=== PATIENT | female | born 1985 | race Caucasian/White ===

== ENCOUNTER → 2020-05-29 08:29 | Outpatient (BNVA) | payer OTHER, SELFPAY | PROVIDERS: PCP Internal Medicine; Visit Provider Obstetrics & Gynecology | DX: N92.1 Excessive and frequent menstruation with irregular cycle (principal); R10.2 Pelvic and perineal pain; R31.29 Other microscopic hematuria; Z86.001 Personal history of in-situ neoplasm of cervix uteri | CPT/HCPCS: 81003; 99213 ==

== ENCOUNTER 2020-06-12 08:05 | Outpatient (REF) | payer OTHER, SELFPAY ==
--- NOTE | 2020-06-12 08:09 | CT_ITS ---
EXAMINATION: CT ABDOMEN AND PELVIS WITHOUT AND WITH CONTRAST CLINICAL INFORMATION: Microscopic hematuria. COMPARISON: Ultrasound abdomen 07/06/[address] abdomen and pelvis with contrast 04/20/2013 TECHNIQUE: Multidetector volumetric imaging was performed of the abdomen and pelvis before and after the IV administration of 85 mL of Omnipaque 350 intravenous contrast. Sagittal and coronal reformatted images were obtained on the technologist's workstation. This CT examination was performed using dose optimization techniques as appropriate, variously including the following: *Automated exposure control *Adjustment of mA and/or kV according to patient size (this includes techniques or standardized protocols for targeted exams where dose is matched to indication/reason for exam; i.e. extremities or head) *Use of iterative reconstruction technique DLP: 806 mGy-cm FINDINGS: LUNG BASES: The lung bases are clear. The heart size is normal. LIVER, GALLBLADDER, AND BILIARY TREE: The liver is normal in size, shape, and attenuation. There is 1 cm hypodense lesion right hepatic lobe measuring cyst density. There are several scattered hypodense lesions seen as well in the right and the left hepatic lobe likely small cysts. No intrahepatic ductal dilatation seen. No enhancing lesion identified. The gallbladder is unremarkable with no evidence of radiopaque gallstones, gallbladder wall thickening or obvious pericholecystic inflammatory changes. PANCREAS: Unremarkable. SPLEEN: Unremarkable. ADRENAL GLANDS: Unremarkable. KIDNEYS AND URETERS: The kidneys are normal in size, shape and attenuation. No radiopaque renal or ureteral calculi seen. Postcontrast images reveal normal cortical enhancement with likely small hypodense cyst in the upper pole left kidney. There is a mildly dilated right ureter in its entire length with slight hypodense appearing distal ureter with ureteral wall thickening. No radiopaque calculi seen. BLADDER: Unremarkable. GASTROINTESTINAL TRACT: There is scattered stool and gas seen throughout the colon without any significant distention. The small bowel loops are normal in caliber. The appendix has been surgically removed with surgical sutures in its place. No free fluid or free air seen. ABDOMINAL WALL: No significant hernia is appreciated. LYMPH NODES: Normal. VASCULAR: Unremarkable. PELVIC VISCERA: There are small septated cysts seen in both ovaries. There is minimal free fluid. The uterus is anteverted and appears unremarkable. OSSEOUS STRUCTURES: Mild degenerative disc changes and ventral spondylosis seen lower dorsal spine. The lumbar spine is grossly unremarkable. IMPRESSION: No radiopaque urolith or hydronephrosis. There is a mildly dilated right distal ureter with mild right ureteral wall thickening suspected. Appendix has been surgically removed. Mild constipation. Bilateral multiple renal cysts.
[2020-06-12] MEDS: iohexoL 350 MG/ML 100 ML INFUS..BTL IV (09:20)
== END 2020-06-12 08:06 | disposition home or self-care (01) ==
LOC: HO.CT 08:05
PROVIDERS: PCP Internal Medicine; Visit Provider Obstetrics & Gynecology
DX: R31.29 Other microscopic hematuria (principal)
CPT/HCPCS: 74178

== ENCOUNTER 2020-08-11 10:19 | Outpatient (REF) | payer OTHER, SELFPAY | END 2020-08-11 10:20 | disposition home or self-care (01) | LOC: HO.LAB 10:19 | PROVIDERS: Visit Provider Obstetrics & Gynecology | DX: N92.1 Excessive and frequent menstruation with irregular cycle (principal) | CPT/HCPCS: 58100; 81025; 88305 ==

== ENCOUNTER → 2020-08-31 15:11 | Outpatient (BNVA) | payer OTHER, SELFPAY | PROVIDERS: PCP Nurse Practitioner Family; Visit Provider Obstetrics & Gynecology | DX: Z76.89 Persons encountering health services in other specified circumstances (principal) ==

== ENCOUNTER → 2021-01-09 13:33 | Outpatient (BNVA) | payer OTHER, SELFPAY | PROVIDERS: PCP Internal Medicine; Visit Provider Urology | DX: R31.29 Other microscopic hematuria (principal) | CPT/HCPCS: 99202 ==

== ENCOUNTER 2021-02-01 16:19 | Emergency (ER) | payer OTHER, SELFPAY ==
--- NOTE | ~2021-02-01 | US_ITS ---
EXAMINATION: ULTRASOUND PELVIS CLINICAL INFORMATION: Worsening suprapubic and left lower quadrant pain COMPARISON: 05/17/2020 TECHNIQUE: Sonographic evaluation of the pelvis was performed transabdominally and transvaginally. FINDINGS: The uterus measures 5.8 cm in length and 3.6 x 4.7 cm in AP and transverse dimensions. The endometrial stripe measures 1.0 cm in thickness. Redemonstrated echogenic foci in the cervix and endometrium which may reflect sequelae of prior biopsies. The right ovary measures 2.1 x 2.1 x 1.9 cm (volume 4.4 mL). Right ovarian cyst measures up to 1.8 cm. Tiny echogenic focus noted in the right ovary. The left ovary measures 2.8 x 1.7 x 2.1 cm (volume 5.2 mL) and contains a somewhat thick-walled cyst measuring up to 1.6 cm favored to represent a corpus luteal cyst. No free fluid is seen. US/US pelvic and transvaginal IMPRESSION: No acute findings identified in the abdomen/pelvis. Small echogenic foci in the endometrium and cervix, likely sequelae of prior biopsies.
[2021-02-01 17:27] VITALS: BP 113/54; PULSE 92; RESP 18; TEMP 36.6; O2SAT 98; BMI 26.5
[2021-02-01 17:48] LABS: Glucose Urine UA NEG (NEG); Leukocyte Esterase Urine NEG (NEG); Nitrite Urine NEG (NEG); Urine Blood NEG (NEG); Urine Ketones NEG (NEG); Urine Protein NEG (NEG-TRACE)
[2021-02-01 17:50] LABS: Appearance Urine CLEAR; Color Urine STRAW
[2021-02-01 17:51] LABS: UPreg QC Valid YES; Urine Pregnancy NEGATIVE (NEGATIVE)
[2021-02-01 20:17] VITALS: BP 98/68; PULSE 75; RESP 18; O2SAT 99
[2021-02-01 20:28] LABS: MANUAL DIFF FLAG NO
[2021-02-01 20:31] LABS: Basophils Percent Auto 0.4 % (0-2); Eosinophils Absolute Auto 0.2 X10*3/uL (0.0-0.4); Eosinophils Percent Auto 2.2 % (0-4); Hematocrit 39.3 % (37-47); Hemoglobin 13.2 g/dl (12.0-16.0); Imm Gran Abs Auto 0.04 X10*3/uL (0.00-0.03); Imm Gran Pct Auto 0.4 % (0.0-0.4); Lymphocytes Absolute Auto 3.7 X10*3/uL (1.2-4.9); Lymphocytes Percent Auto 37.8 % (20-40); Mean Corpuscular HGB Conc 33.6 g/dl (31.0-35.0); Mean Corpuscular Hemoglobin 30.9 pg (27.0-33.0); Mean Platelet Volume 9.6 fL (9.4-12.3); Monocytes Absolute Auto 0.6 X10*3/uL (0.1-1.2); Monocytes Percent Auto 6.5 % (2-11); Neutrophils Absolute Auto 5.1 X10*3/uL (2.0-8.3); Neutrophils Percent Auto 52.7 % (45-73); Platelet Count 330 X10*3/uL (160-400); Red Blood Count 4.27 X10*6/uL (4.20-5.50); Red Cell Distribution Width 13.6 % (11.0-16.0); White Blood Count 9.7 X10*3/uL (4.8-10.8)
[2021-02-01 20:59] LABS: Anion Gap 10 (12-20); Calcium 9.3 mg/dL (8.4-10.2); Carbon Dioxide 28 mmol/L (22-29); Chloride 102 mmol/L (96-108); Creatinine Clr Calc Pharmacy 102.9; Estimated Glomerular Filt Rate > 60; Glucose Random 86 mg/dL (60-115); Sodium 136 mmol/L (135-145)
[2021-02-01 21:04] LABS: Blood Urea Nitrogen 10 mg/dL (9-16)
[2021-02-01 23:22] VITALS: BP 114/58; PULSE 70; RESP 18; TEMP 36.8; O2SAT 98
--- NOTE | 2021-02-01 23:33 | ED.ABDPAIN ---
HPI - Abdominal Pain General Chief Complaint: Abdominal Pain Stated Complaint: Lower Rib Pain Time Seen by Provider: 02/01/21 23:26 Source: patient Mode of arrival: ambulatory Limitations: no limitations History of Present Illness HPI narrative: Patient emergency room complaining of worsening suprapubic pain. Patient states she has been seen by Dr. Garvin from Urology, Dr. Montano from OBGYN. Patient has been diagnosed with microscopic hematuria and also endometriosis. Patient states that for the last 2 weeks she has been having worsening suprapubic pain. Patient states the pain became worse today and called obgyn specialist, she was instructed to come to emergency room. MD elicited complaint: abdominal pain Related Data Previous Rx's Medication Instructions Recorded amoxicillin 875 mg-potassium 1 tab PO BID #20 tab 12/29/20 clavulanate 125 mg tablet dexamethasone 4 mg tablet 4 mg PO .COMPLEX #18 tab 12/29/20 tramadol 50 mg PO TID PRN #10 tab 02/02/21 Allergies Allergy/AdvReac Type Severity Reaction Status Date / Time No Known Allergies Allergy Verified 01/09/21 08:06 Review of Systems Review of Systems Constitutional : No Weight loss, No Fever, No Chills, No Night Sweats, No Fatigue, No Malaise ENT/Mouth : No Hearing loss, No Ear Pain, No Nasal Congestion, No Sinus Pain, No Hoarseness, No sore throat, No Rhinorrhea, No Swallowing Difficulty Eyes: No Eye Pain, No Swelling, No Redness, No Foreign Body, No Discharge, No Vision Changes Cardiovascular : No Chest Pain, No SOB, No Dyspnea on Exertion, No Orthopnea, No Edema, No Palpitations Respiratory : No Cough, No Sputum, No Wheezing, No Smoke Exposure, No Dyspnea Gastrointestinal : No Nausea, No Vomiting, No Diarrhea, No Constipation, complaining of suprapubic pain, left lower quadrant pain, No Hematochezia, No Melena Genitourinary : no irregular bleeding, No Dysuria, No Urinary Frequency, No Hematuria, No Urinary Incontinence, No Urgency, No Flank Pain, No Urinary Flow Changes, No Hesitancy Musculoskeletal : No joint pain, No Myalgias, No Joint Swelling Skin : No Skin Lesions, No rash Neuro : No Weakness, No Numbness, No Paresthesias, No Loss of Consciousness, No Dizziness, No Headache Psych : No Anxiety/Panic, No Depression, No SI/HI/AH/VH, No Social Issues, Heme/Lymph: No Bruising, No Bleeding,No Lymphadenopathy Endocrine : No Polyuria, No Polydipsia, No Temperature Intolerance Physical Exam Vital Signs: Vital Signs: Last Vital Signs Temp 98.3 F 02/01/21 23:22 Pulse 70 02/01/21 23:22 Resp 18 02/01/21 23:22 BP 114/58 L 02/01/21 23:22 Pulse Ox 98 02/01/21 23:22 Body Mass Index 26.5 Appearance: Alert. Oriented X3. No acute distress. Eyes: Pupils equal, round and reactive to light. ENT: Pharynx normal. Neck: Normal inspection. Neck supple. No lymph nodes noted. No crepitus CVS: Normal heart rate and rhythm. Pulses normal. Normal S1 and S2 Respiratory: No respiratory distress. Breath sounds normal. No Wheezing. No rales Abdomen: Soft, [id number] pain to palpation over the suprapubic region and left lower quadrant. No rigidity. No distention. Skin: Skin warm and dry. Normal skin color. Normal skin turgor. Extremities: No lower extremity edema. No lower extremity edema. No Lacerations. No Rash Neuro: Oriented X 3. No motor deficit. No sensory deficit. Moving all extermities. No slurred speech. Course Course Course Narrative: I discussed the ultrasound with the patient, patient does have a right ovarian cyst, patient has chronic pain likely secondary from endometriosis. Patient instructed to follow-up with her OBGYN. MDM - Abdominal Pain Lab Data Result diagrams: 02/01/21 20:23 02/01/21 20:23 Labs: Lab Results 02/01/21 02/01/21 02/01/21 Range/Units 17:33 17:33 20:23 WBC 9.7 (4.8-10.8) X10*3/uL RBC 4.27 (4.20-5.50) X10*6/uL Hgb 13.2 (12.0-16.0) g/dl Hct 39.3 (37-47) % MCV 92.0 (80-98) fL MCH 30.9 (27.0-33.0) pg MCHC 33.6 (31.0-35.0) g/dl RDW 13.6 (11.0-16.0) % Plt Count 330 (160-400) X10*3/uL MPV 9.6 (9.4-12.3) fL Immature Gran % (Auto) 0.4 (0.0-0.4) % Neut % (Auto) 52.7 (45-73) % Lymph % (Auto) 37.8 (20-40) % [place] % (Auto) 6.5 (2-11) % Eos % (Auto) 2.2 (0-4) % Baso % (Auto) 0.4 (0-2) % Lymph # (Auto) 3.7 (1.2-4.9) X10*3/uL [place] # (Auto) 0.6 (0.1-1.2) X10*3/uL Eos # (Auto) 0.2 (0.0-0.4) X10*3/uL Baso # (Auto) 0.0 (0.0-0.2) X10*3/uL Abs Immat Gran (auto) 0.04 H (0.00-0.03) X10*3/uL Absolute Neuts (auto) 5.1 (2.0-8.3) X10*3/uL Absolute Nucleated RBC 0.000 (0.0-0.012) X10*3/uL Nucleated RBC % (auto) 0.0 (0.0-0.2) /100WBC Sodium (135-145) mmol/L Potassium (3.3-5.1) mmol/L Chloride (96-108) mmol/L Carbon Dioxide (22-29) mmol/L Anion Gap (12-20) BUN (9-16) mg/dL Creatinine (0.5-1.4) mg/dL Estim Creat Clear Calc Estimated GFR Random Glucose (60-115) mg/dL Calcium (8.4-10.2) mg/dL Urine Color STRAW Urine Appearance CLEAR Urine pH 7.0 (5.0-8.0) Ur Specific Mcdonough 1.010 (1.005-1.025) Urine Protein NEG (NEG-TRACE) MG/DL Urine Glucose (UA) NEG (NEG) MG/DL Urine Ketones NEG (NEG) MG/DL Urine Blood NEG (NEG) Urine Nitrite NEG (NEG) Ur Leukocyte Esterase NEG (NEG) Urine Test NEGATIVE (NEGATIVE) 02/01/21 Range/Units 20:23 WBC (4.8-10.8) X10*3/uL RBC (4.20-5.50) X10*6/uL Hgb (12.0-16.0) g/dl Hct (37-47) % MCV (80-98) fL MCH (27.0-33.0) pg MCHC (31.0-35.0) g/dl RDW (11.0-16.0) % Plt Count (160-400) X10*3/uL MPV (9.4-12.3) fL Immature Gran % (Auto) (0.0-0.4) % Neut % (Auto) (45-73) % Lymph % (Auto) (20-40) % [place] % (Auto) (2-11) % Eos % (Auto) (0-4) % Baso % (Auto) (0-2) % Lymph # (Auto) (1.2-4.9) X10*3/uL [place] # (Auto) (0.1-1.2) X10*3/uL Eos # (Auto) (0.0-0.4) X10*3/uL Baso # (Auto) (0.0-0.2) X10*3/uL Abs Immat Gran (auto) (0.00-0.03) X10*3/uL Absolute Neuts (auto) (2.0-8.3) X10*3/uL Absolute Nucleated RBC (0.0-0.012) X10*3/uL Nucleated RBC % (auto) (0.0-0.2) /100WBC Sodium 136 (135-145) mmol/L Potassium 4.0 (3.3-5.1) mmol/L Chloride 102 (96-108) mmol/L Carbon Dioxide 28 (22-29) mmol/L Anion Gap 10 L (12-20) BUN 10 (9-16) mg/dL Creatinine 0.70 (0.5-1.4) mg/dL Estim Creat Clear Calc 102.9 Estimated GFR > 60 Random Glucose 86 (60-115) mg/dL Calcium 9.3 (8.4-10.2) mg/dL Urine Color Urine Appearance Urine pH (5.0-8.0) Ur Specific Mcdonough (1.005-1.025) Urine Protein (NEG-TRACE) MG/DL Urine Glucose (UA) (NEG) MG/DL Urine Ketones (NEG) MG/DL Urine Blood (NEG) Urine Nitrite (NEG) Ur Leukocyte Esterase (NEG) Urine Test (NEGATIVE) Imaging Data US - abdomen: Radiologist's impression: FINDINGS: The uterus measures 5.8 cm in length and 3.6 x 4.7 cm in AP and transverse dimensions. The endometrial stripe measures 1.0 cm in thickness. Redemonstrated echogenic foci in the cervix and endometrium which may reflect sequelae of prior biopsies. The right ovary measures 2.1 x 2.1 x 1.9 cm (volume 4.4 mL). Right ovarian cyst measures up to 1.8 cm. Tiny echogenic focus noted in the right ovary. The left ovary measures 2.8 x 1.7 x 2.1 cm (volume 5.2 mL) and contains a somewhat thick-walled cyst measuring up to 1.6 cm favored to represent a corpus luteal cyst. No free fluid is seen. US/US pelvic and transvaginal IMPRESSION: No acute findings identified in the abdomen/pelvis. Small echogenic foci in the endometrium and cervix, likely sequelae of prior biopsies. Discharge Plan Discharge Clinical Impression: Ovarian cyst Qualifiers: Laterality: right Qualified Code(s): N83.201 - Unspecified ovarian cyst, right side Patient Disposition: Home, Self-Care Instructions: Ovarian Cyst (ED) Additional Instructions: Please follow-up with your primary care physician tomorrow. If you have any worsening or new symptoms, please return to the emergency room or call 911 Prescriptions: New tramadol 50 mg tablet 50 mg PO TID PRN (Reason: pain) Qty: 10 RF: 0 No Action dexamethasone 4 mg tablet 4 mg PO .COMPLEX Qty: 18 RF: 0 amoxicillin-pot clavulanate [Augmentin] 875-125 mg tablet 1 tab PO BID Qty: 20 RF: 0 PMFSH Past Medical History Medical History SHARIFA III (cervical intraepithelial neoplasia grade III) with severe dysplasia Endometriosis Surgical History H/O foot surgery History of surgery Hx of appendectomy Family History Family History Mother No problems noted. Maternal Grandmother No problems noted. Maternal Grandfather Kidney failure High cholesterol CHF (congestive heart failure) Diabetes mellitus Social History Social History Alcohol intake: current Alcohol intake frequency: holidays/special occasions only Patient Tobacco Use Status: Current someday Tobacco user Use of substances other than those prescribed or required for medical reasons: No Advance Directives: No Advance Directives Information Provided: No Patient : No Sexual orientation: Straight/Heterosexual Gender identity: female
[2021-02-02] MEDS: Ketorolac Tromethamine 30 MG/ML VIAL 60 MG IM (00:07)
[2021-02-02 01:58] VITALS: BP 117/68; PULSE 65; RESP 17; O2SAT 97
[2021-02-02] MEDS: Morphine Sulfate 2 MG/ML CARTRIDGE IM (02:01)
== END 2021-02-02 02:05 | disposition home or self-care (01) ==
PROVIDERS: Emergency Provider Emergency Medicine
DX: N83.201 Unspecified ovarian cyst, right side (principal); N80.0 Endometriosis of uterus
CPT/HCPCS: 36415; 76830; 76856; 80048; 81003; 81025; 85025; 96372; 99284; 99285; J1885; J2270

== ENCOUNTER → 2021-02-07 14:02 | Outpatient (BNVA) | payer OTHER, SELFPAY | PROVIDERS: Visit Provider Obstetrics & Gynecology | DX: N83.299 Other ovarian cyst, unspecified side (principal); R10.2 Pelvic and perineal pain | CPT/HCPCS: 99212 ==

== ENCOUNTER 2021-04-04 13:35 | Outpatient (REF) | payer OTHER, SELFPAY ==
--- NOTE | ~2021-04-04 | US_ITS ---
EXAMINATION: US PELVIC AND TRANSVAGINAL CLINICAL INFORMATION: Ovarian cyst. COMPARISON: Most recent pelvic ultrasound dated 02/02/2021. TECHNIQUE: Ultrasound of the pelvis is performed using both transabdominal and transvaginal transducers along with Doppler. Transvaginal imaging is performed due to inadequate visualization transabdominally. FINDINGS: Uterus: The uterus is anteverted and measures 6.5 x 3.5 x 3.8 cm. The double wall endometrial thickness is 0.6 mm. Echogenic foci within the posterior aspect of the endometrium, similar when compared to the prior ultrasound. Findings could represent the sequela of prior biopsy. The uterus is smooth in contour and has normal myometrial echogenicity. No visible fibroid. Adnexa: Both ovaries are visualized. There is normal color flow to the adnexa. There is no ovarian torsion. Trace pelvic free fluid. Right ovary measures 2.7 1.4 x 1.9 cm. There is a septated 1.4 x 1.0 x 1.3 cm cyst within the right ovary, which may represent the sequela of a ruptured cyst. An associated hyperechoic focus is redemonstrated, similar when compared to the prior examination. Left ovary measures 4.5 x 2.1 x 4.7 cm. There is a complex left renal cyst with thin septations and debris measuring 4 x 2.5 x 3 cm. Additionally there is a heterogeneous soft tissue focus which is ovoid and new when compared to the prior examination measuring 2.3 x 1.4 x 1.5 cm. There is peripheral Doppler detectable vascular flow. Findings may represent a corpus luteum. US/US pelvic and transvaginal IMPRESSION: 1. Echogenic foci are redemonstrated within the endometrium, unchanged when compared to the prior examination. Findings may represent the sequela of prior biopsy. 2. Septated 1.4 cm right ovarian cyst, which may represent the sequela of a ruptured cyst. Associated hyperechoic foci, similar when compared to the prior examination. 3. New complex left renal cyst measuring 4.0 cm. Additional new possible corpus luteum measuring 2.3 cm. 4. Trace pelvic free fluid.
== END 2021-04-04 13:36 | disposition home or self-care (01) ==
LOC: HO.US 13:35
PROVIDERS: PCP Nurse Practitioner Family; Visit Provider Obstetrics & Gynecology
DX: N83.299 Other ovarian cyst, unspecified side (principal)
CPT/HCPCS: 76830; 76856

== ENCOUNTER → 2021-04-11 10:35 | Outpatient (BNVA) | payer OTHER, SELFPAY | PROVIDERS: PCP Nurse Practitioner Family; Visit Provider Obstetrics & Gynecology ==

== ENCOUNTER 2021-06-14 14:57 | Outpatient (REF) | payer OTHER, SELFPAY ==
[2021-06-15 04:16] LABS: CT PCR NOT DETECTED (Not Detect.)
[2021-06-15 04:17] LABS: NG PCR NOT DETECTED (Not Detect.)
[2021-06-15 08:31] LABS: BV Int Neg Control Negative (Negative); BV Int Pos Control Positive (Positive)
[2021-06-15 12:06] LABS: CA-125 26 U/mL (<35)
== END 2021-06-14 14:58 | disposition home or self-care (01) ==
LOC: HO.LAB 14:57
PROVIDERS: PCP Internal Medicine; Visit Provider Obstetrics & Gynecology
DX: N83.299 Other ovarian cyst, unspecified side (principal); R10.2 Pelvic and perineal pain; N76.0 Acute vaginitis; B96.89 Other specified bacterial agents as the cause of diseases classified elsewhere; F17.200 Nicotine dependence, unspecified, uncomplicated
CPT/HCPCS: 36415; 86304; 87480; 87491; 87510; 87591; 87660; 99212

== ENCOUNTER 2021-06-19 15:49 | Outpatient (REF) | payer OTHER, SELFPAY ==
--- NOTE | ~2021-06-19 | US_ITS ---
EXAMINATION: US PELVIC AND TRANSVAGINAL CLINICAL INFORMATION: Ovarian cysts. COMPARISON: None TECHNIQUE: Ultrasound of the pelvis is performed using both transabdominal and transvaginal transducers along with Doppler. Transvaginal imaging is performed due to inadequate visualization transabdominally. FINDINGS: The uterus is anteverted and measures 6 x 2.7 x 4 cm in dimension. Endometrial thickness is normal measuring 0.5 cm. There are small calcifications in the uterus adjacent to the endometrium. No other focal uterine lesion is seen. The right ovary measures 2.5 x 2.2 x 1.6 cm. There is a 1.5 x 1.3 x 1.5 cm right ovarian cyst. This is similar-appearing to 04/04/2021 exam. The left ovary measures 3.9 x 2.5 x 1.8 cm. There is a 1 x 0.8 x 1.3 cm simple cyst. There is a 1.6 x 1.7 x 1.8 cm minimally complex cyst with fine lace-like reticulations. This may represent the previously identified 4 x 2.5 x 3 cm cyst on the March 2021 exam and be decreased in size. There is a 1.5 x 1.2 x 1.2 cm complex cyst which is irregularly-shaped with thick echogenic wall. There is a small amount of fluid in the pelvis. US/US pelvic and transvaginal IMPRESSION: Multiple bilateral ovarian cysts. There are 2 complex left ovarian cysts, largest measuring 1.6 x 1.7 x 1.8 cm. This may represent the 4 x 2.5 x 3 cm cyst seen on the March 2021 exam and be decreased in size.
== END 2021-06-19 15:50 | disposition home or self-care (01) ==
LOC: HO.US 15:49
PROVIDERS: Visit Provider Obstetrics & Gynecology
DX: N83.299 Other ovarian cyst, unspecified side (principal)
CPT/HCPCS: 76830; 76856

== ENCOUNTER 2021-06-26 14:10 | Outpatient (REF) | payer OTHER, SELFPAY ==
[2021-06-26 15:01] LABS: Influenza A PCR NEGATIVE (Negative); Influenza B PCR NEGATIVE (Negative); Resp Syncy Virus RNA Qual PCR NEGATIVE (Negative); SARS COV2 PCR INHOUSE NEGATIVE (Negative)
== END 2021-06-26 14:11 | disposition home or self-care (01) ==
LOC: HO.LNP 14:10
PROVIDERS: Visit Provider Internal Medicine
DX: Z20.822 Contact with and (suspected) exposure to COVID-19 (principal); R43.9 Unspecified disturbances of smell and taste
CPT/HCPCS: 0241U

== ENCOUNTER → 2021-06-27 13:54 | Outpatient (BNVA) | payer OTHER, SELFPAY | PROVIDERS: Visit Provider Obstetrics & Gynecology ==

== ENCOUNTER 2022-07-22 09:51 | Outpatient (REF) | payer OTHER, SELFPAY ==
[2022-07-22 14:10] LABS: CT PCR NOT DETECTED (Not Detect.); NG PCR NOT DETECTED (Not Detect.)
[2022-07-23 08:55] LABS: BV Int Neg Control Negative (Negative); BV Int Pos Control Positive (Positive)
[2022-07-24 20:28] LABS: HPV mRNA E6/E7 rflx Not Detected (Not Detected)
== END 2022-07-22 09:52 | disposition home or self-care (01) ==
LOC: HO.LNP 09:51
PROVIDERS: Visit Provider Obstetrics & Gynecology
DX: Z01.419 Encounter for gynecological examination (general) (routine) without abnormal findings (principal); N90.89 Other specified noninflammatory disorders of vulva and perineum; N93.9 Abnormal uterine and vaginal bleeding, unspecified
CPT/HCPCS: 87480; 87491; 87510; 87591; 87624; 87660; 88142

== ENCOUNTER 2022-08-28 10:47 | Outpatient (REF) | payer OTHER, SELFPAY ==
--- NOTE | ~2022-08-28 | US_ITS ---
EXAMINATION: US PELVIS CLINICAL INFORMATION: Abnormal uterine bleeding, last menstrual period 08/12/2022. History of cervical cancer 2018. COMPARISON: 06/19/2021 TECHNIQUE: Ultrasound of the pelvis is performed using both transabdominal and transvaginal transducers along with Doppler. Transvaginal imaging is performed due to inadequate visualization transabdominally. FINDINGS: The uterus measures 6.7 x 3.1 x 4.8 cm. Scattered echogenic foci within the myometrium are characteristic of coarse calcifications. Endometrial thickness is 0.4 cm. Right ovary measures 2.7 x 1.6 x 2.4 cm, volume 5.3 mL. Right ovarian 1.8 x 1.1 x 1.7 cm cyst is mildly complex. Left ovary measures 4.2 x 3.8 x 4.8 cm, volume 40.1 mL. Left ovarian mildly complex cyst with internal echoes/debris. US/US pelvic and transvaginal IMPRESSION: 1. Right ovarian 1.8 x 1.1 x 1.7 cm cyst. Previous exam demonstrated a 1.5 x 1.3 x 1.5 cm right ovarian cyst. 2. Left ovarian 4.0 x 2.6 x 4.2 cm mildly complex cyst with low-level internal echoes. Previous exam demonstrated left ovarian cysts measuring up to 1.8 cm in maximum dimension. 3. Recommend follow-up ultrasound in 6-8 weeks.
[2022-08-28 12:22] LABS: Hematocrit 42.7 % (37.0-47.0); Hemoglobin 13.9 g/dl (12.0-16.0); Mean Corpuscular HGB Conc 32.6 g/dl (31.0-35.0); Mean Corpuscular Hemoglobin 30.1 pg (27.0-33.0); Mean Corpuscular Volume 92.4 fL (80.0-98.0); Mean Platelet Volume 10.1 fL (9.4-12.3); Platelet Count 362 X10*3/uL (160-400); Red Blood Count 4.62 X10*6/uL (4.20-5.50); Red Cell Distribution Width 13.5 % (11.0-16.0); White Blood Count 8.8 X10*3/uL (4.8-10.8)
[2022-08-28 13:14] LABS: HCG Quantitative < 2 mIU/mL; TSH reflex Free T4 0.54 uIU/mL (0.32-4.0)
== END 2022-08-28 10:48 | disposition home or self-care (01) ==
LOC: HO.US 10:47
PROVIDERS: PCP Internal Medicine; Visit Provider Obstetrics & Gynecology
DX: N93.9 Abnormal uterine and vaginal bleeding, unspecified (principal)
CPT/HCPCS: 36415; 76830; 76856; 84443; 84702; 85027

== ENCOUNTER 2022-09-11 09:54 | Outpatient (REF) | payer OTHER, SELFPAY | END 2022-09-11 09:55 | disposition home or self-care (01) | LOC: HO.LNP 09:54 | PROVIDERS: PCP Internal Medicine; Visit Provider Obstetrics & Gynecology | DX: N93.9 Abnormal uterine and vaginal bleeding, unspecified (principal); N83.299 Other ovarian cyst, unspecified side | CPT/HCPCS: 58100; 88305; 99212 ==

== ENCOUNTER 2022-09-17 16:03 | Outpatient (REF) | payer OTHER, SELFPAY ==
--- NOTE | ~2022-09-17 | MR_ITS ---
EXAMINATION: MRI PELVIS WITH AND WITHOUT CONTRAST CLINICAL INFORMATION: Evaluation of ovarian cysts. COMPARISON: Pelvic ultrasound 08/28/2022. CT abdomen/pelvis 06/12/2020. TECHNIQUE: Multiple routine MRI sequences through the pelvis were obtained on a high-field 1.5 Kasia MRI before and after the uneventful administration of 7.5 mL Gadavist gadolinium-based IV contrast. FINDINGS: UTERUS: Anteverted uterus has a normal configuration and measures 6.3 cm [id number] x 3.8 cm anterior-posterior x 5.5 cm transverse. Normal endometrial thickness, 0.5 cm. Junctional zone is normal in signal and thickness. No focal uterine mass seen. CERVIX: Normal. VAGINA: Normal; no mass seen. OVARIES: The ovaries are medially situated in the cul-de-sac posterior to the uterus, likely secondary to gravitational laxity as there are no ancillary features to suggest deep pelvic endometriosis. There is a 4.1 x 3.8 x 3.8 cm unilocular well-defined nonenhancing simple left ovarian cyst, which is almost certainly benign and for which no imaging follow-up is recommended. Immediately anterior to this cyst, there is a 1.9 x 1.3 cm collapsed diffusely thickened wall corpus luteal cyst in the left ovary (5:11 and 10:17). The right ovary abuts the posterior uterine surface on image 13 series 5; and within the right ovary there is a 0.8 cm homogeneously precontrast T1 bright and T2 dark observation (9:18 and 8:17). KIDNEYS: Two normally positioned kidneys are seen. No hydronephrosis. BLADDER: Urinary bladder normal. PELVIC FREE FLUID: Small volume of free fluid around the ovaries and in the cul-de-sac. LYMPH NODES: No pathologically enlarged lymph nodes. OSSEOUS STRUCTURES: No acute or suspicious osseous abnormalities. OTHERS: A few subcentimeter T2 bright liver observations noted in the large [id number] coronal T2 images are favored to represent simple cysts, also noted on CT abdomen from 06/12/2020. MR/MR pelvis wo/w con IMPRESSION: 1. 4.1 cm simple left ovarian cyst, almost certainly benign, for which no imaging follow-up is recommended. 2. 0.8 cm precontrast T1 bright and T2 dark observation in the right ovary. This could correlate with the cyst described on the ultrasound from 08/28/2022 with proteinaceous/hemorrhagic content or less likely be related with a small endometrioma; and it is incompletely characterized on the postcontrast images in the absence of subtraction views given its intrinsic T1 bright activity. Recommend a follow-up pelvic ultrasound in 6-12 weeks.
[2022-09-19 07:18] LABS: CA-125 19 U/mL (<35)
== END 2022-09-17 16:04 | disposition home or self-care (01) ==
LOC: HO.MRI 16:03
PROVIDERS: PCP Internal Medicine; Visit Provider Obstetrics & Gynecology
DX: N83.299 Other ovarian cyst, unspecified side (principal)
CPT/HCPCS: 36415; 72197; 86304; A9585

== ENCOUNTER → 2022-10-01 11:26 | Outpatient (BNVA) | payer OTHER, SELFPAY | PROVIDERS: PCP Internal Medicine; Visit Provider Obstetrics & Gynecology | DX: N93.9 Abnormal uterine and vaginal bleeding, unspecified (principal); N83.292 Other ovarian cyst, left side; N83.291 Other ovarian cyst, right side | CPT/HCPCS: 99212 ==

== ENCOUNTER 2022-10-07 12:38 | Emergency (ER) | payer OTHER, SELFPAY ==
--- NOTE | ~2022-10-07 | XR_ITS ---
EXAMINATION: XR SHOULDER, LEFT CLINICAL INFORMATION: Pain COMPARISON: None TECHNIQUE: 3 views of the left shoulder. FINDINGS: The bones and soft tissues are normal. No fracture. Glenohumeral and acromioclavicular alignment is anatomic with normal joint space. No abnormal soft tissue calcifications. XR/XR shoulder LT min 2V IMPRESSION: Normal left shoulder.
[2022-10-07 13:16] VITALS: BP 104/44; PULSE 91; RESP 18; TEMP 36.8; O2SAT 99; BMI 27.4
--- NOTE | 2022-10-07 13:17 | ED.UPPEXIN ---
HPI - Extremity Injury (Upper) General Chief Complaint: Extremity Problem <TOM Gan - Last Filed: 10/07/22 13:20> Stated Complaint: l shoulder pain down arm numbness <TOM Gan - Last Filed: 10/07/22 13:20> Time Seen by Provider: 10/07/22 13:32 <TOM Gan - Last Filed: 10/07/22 13:20> Source: patient <Marthaanamika Fitzgerald JON Acosta - Last Filed: 10/07/22 17:46> Mode of arrival: ambulatory <Martha Acosta CNP - Last Filed: 10/07/22 17:46> Limitations: no limitations <Martha Acosta CNP - Last Filed: 10/07/22 17:46> History of Present Illness HPI narrative: Patient is a 27-year-old female who presents to the emergency department for evaluation of left arm pain. She reports 2 weeks ago she was walking the dog, the dog pulled on the leash, and she subsequently developed pain. Pain is felt diffusely in the left shoulder. Over the past 2 days she has developed tingling sensation to her fingertips. No subjective weakness to the arm/hand. Pain is made worse with lifting/certain positions and movement. Denies any associated neck pain with this or additional injury. She is also reporting pain to the left lower back that radiates into the left posterior thigh, which is made worse with particular movements such as forward bending. Denies fevers, chills, nausea, vomiting, abdominal pain, pelvic pain, genital urinary symptoms. <Martha Acosta CNP - Last Filed: 10/07/22 17:46> Related Data Home Medications: Previous Rx's Medication Instructions Recorded albuterol sulfate 90 mcg/actuation 1 inh inhalation QID PRN shortness 08/31/21 breath activated powder inhaler of breath or wheezing #1 ea (ProAir RespiClick) prednisone 10 mg tablet 10 mg PO DAILY 7 days #7 tabs 08/31/21 L norgest/E estradiol-E estrad 1 tab PO DAILY 84 days #84 ea 10/01/22 0.15 mg-30 mcg (84)/10 mcg(7) tabs,3mos (Seasonique) cyclobenzaprine 10 mg tablet 10 mg PO BEDTIME PRN muscle spasm 10/07/22 #14 tabs <TOM Gan - Last Filed: 10/07/22 13:20> Allergies/Adverse Reactions: Allergies Allergy/AdvReac Type Severity Reaction Status Date / Time No Known Allergies Allergy Verified 10/01/22 11:31 <TOM Gan - Last Filed: 10/07/22 13:20> Review of Systems Review of Systems: Pertinent positives and negatives as noted in HPI <Martha Acosta CNP - Last Filed: 10/07/22 17:46> Yes all other systems are reviewed and are negative <Martha Acosta CNP - Last Filed: 10/07/22 17:46> [facility] Past Medical History Attestation statement: The following information was validated with the patient. <Martha Acosta CNP - Last Filed: 10/07/22 17:46> Source: old records reviewed <Martha Acosta CNP - Last Filed: 10/07/22 17:46> Medical History: Medical History SHARIFA III (cervical intraepithelial neoplasia grade III) with severe dysplasia Endometriosis <TOM Gan - Last Filed: 10/07/22 13:20> Surgical History: Surgical History H/O foot surgery History of surgery Hx of appendectomy <TOM Gan - Last Filed: 10/07/22 13:20> Family History Family History: Family History Mother No problems noted. Maternal Grandmother No problems noted. Maternal Grandfather Kidney failure High cholesterol CHF (congestive heart failure) Diabetes mellitus <TOM Gan - Last Filed: 10/07/22 13:20> Social History Social History: Social History Alcohol intake: never Patient Tobacco Use Status: Current someday Tobacco user Smoked in Last 30 Days: No Use of substances other than those prescribed or required for medical reasons: No Advance Directives: No Advance Directives Information Provided: Yes Patient : No Sexual orientation: Straight/Heterosexual Gender identity: Female <TOM Gan - Last Filed: 10/07/22 13:20> Physical Exam Vital Signs: Vital Signs: Last Vital Signs Temp 98.3 F 10/07/22 13:16 Pulse 91 10/07/22 13:16 Resp 18 10/07/22 13:16 BP 104/44 L 10/07/22 13:16 Pulse Ox 99 10/07/22 13:16 O2 Del Method 10/07/22 13:16 BMI result Body Mass Index 27.4 <TOM Gan - Last Filed: 10/07/22 13:20> Vital Signs: Last Vital Signs Temp 98.3 F 10/07/22 13:16 Pulse 91 10/07/22 13:16 Resp 18 10/07/22 13:16 BP 104/44 L 10/07/22 13:16 Pulse Ox 99 10/07/22 13:16 O2 Del Method 10/07/22 13:16 BMI result Body Mass Index 27.4 <Martha Acosta CNP - Last Filed: 10/07/22 17:46> Appearance: Alert.?Oriented to person, place and time. No acute distress.?Normal affect. Eyes: Pupils equal, round and reactive to light.? ENT: Pharynx normal.?? Neck: Normal inspection.? Neck supple.??No midline cervical spine tenderness, step-offs, deformities. Full AROM. CVS: Heart sounds normal. Normal heart rate and rhythm.? Pulses normal.?? Respiratory: No respiratory distress.? Lung sounds clear to auscultation bilaterally?? Abdomen: Soft and non-tender. Normoactive bowel sounds. Skin: Skin warm and dry.? Normal skin color.? Normal skin turgor.?? Extremities: No lower extremity edema.? No calf ttp. Left shoulder with full AROM. Palpable tenderness on the left medial epicondyle, pain with resisted wrist flexion. 2+ radial pulse bilaterally. Back: + mild left paraspinal muscular tenderness from lumbar region to coccyx. No CVA tenderness. No midline spinal tenderness, step-off's, or deformity. Full ROM intact in bilateral lower extremities. Straight leg test negative on right; Straight leg test positive on left. No rashes, lesions, areas of induration or fluctuance, or signs of infection noted. Neuro: Moves all extremities spontaneously. 5/5 strength in hip extension/flexion, abduction, adduction. Sensation to light touch intact bilaterally. Patellar and Achilles reflex 2+ bilaterally. No ataxia, gait normal and steady.. No focal neuro deficits. Ambulates with normal steady gait. <Martha Acosta CNP - Last Filed: 10/07/22 17:46> Course Course Course Narrative: RME - 37 yo left hand dominant female presents to the ER for evaluation of left shoulder pain that has been worsening for the last 2 weeks. Attributed to her dog pulling the leash during walks. Pain and soreness in entire left shoulder with new onset left arm tingling. No neck pain or injury. No falls. Also reports low back pain as well. ?cervical radiculopathy vs possible lower impingement at the level of the elbow. will get XR shoulder for now and full exam in [facility]. stable to go to the waiting room until treatment room is available. <TOM Gan - Last Filed: 10/07/22 13:20> Medical Decision Making Medical Decision Making MDM Narrative: Patient is a 37-year-old female who presents emergency department for evaluation of left arm pain and lower back pain as noted in HPI. Left shoulder with full AROM including external rotation, XR imaging ordered from [facility] without evidence of acute fracture dislocation, left extremity is neurovascularly intact distally. Tenderness upon palpation over the left trapezius muscle. Consistent with strain of the left shoulder. Point tenderness over the medial epicondyle and has provoked pain with resisted wrist flexion consistent with medial tendinitis. Patient is without any CVA tenderness, straight leg test is positive on the left consistent with lumbar radiculopathy in the setting strain. No focal neurological deficits, physical examination not consistent with cauda equina syndrome. No high-risk past medical history that would warrant CT/MRI imaging. Low suspicion for spinal fracture, spinal infection, epidural abscess. No genitourinary symptoms, not consistent with ectopic , pyelonephritis, urinary tract infection, renal calculi, pelvic infection. Discussed avoidance of exacerbating activity, [id number]-dohxmxm bracing, acetaminophen/NSAID, prescription for cyclobenzaprine sent to patient's pharmacy, recommended outpatient follow-up with primary care provider, possible physical therapy referral. Reviewed worrisome signs and symptoms that would warrant re-evaluation in the emergency department. All questions answered. Stable for discharge. <Martha Acosta CNP - Last Filed: 10/07/22 17:46> Differential Diagnosis Differential Diagnoses: The differential diagnosis associated with the presentation includes (Cervical radiculopathy, shoulder strain, elbow tendinitis, fracture, dislocation, lumbar radiculopathy, lumbar strain, urinary tract infection, pyelonephritis, ureteral calculi) <Martha Acosta CNP - Last Filed: 10/07/22 17:46> Independent Interpretation I performed an independent interpretation of an: Plain X-Ray (Have personally interpreted shoulder XR and agree with radiologist impression) <Martha Acosta CNP - Last Filed: 10/07/22 17:46> Radiology Impression Discussion of test interpretation with radiology: I have reviewed the radiologist's reading. <Martha Acosta CNP - Last Filed: 10/07/22 17:46> Radiologist Impression: XR/XR shoulder LT min 2V IMPRESSION: Normal left shoulder. <Martha Acosta CNP - Last Filed: 10/07/22 17:46> Prescription Management I considered prescription management with: Pain Medication <Martha Acosta CNP - Last Filed: 10/07/22 17:46> Discharge Plan Discharge Clinical Impression: Left elbow tendinitis, Left shoulder strain, Lumbar spine strain <TOM Gan - Last Filed: 10/07/22 13:20> Patient Disposition: Home, Self-Care <TOM Gan - Last Filed: 10/07/22 13:20> Instructions: Tennis Elbow (ED), Low Back Strain (ED), Lower Back Exercises (ED) <TOM Gan - Last Filed: 10/07/22 13:20> Additional Instructions: You can take ibuprofen 200 mg, 3 tablets (600mg) every 6-8 hours as needed for pain, in addition to Tylenol 500 mg, 2 tablets (1,000mg) every 4-6 hours as needed for pain, but not to exceed 3 doses daily (3,000mg).? Prescription for muscle relaxant was sent to pharmacy, this medication may make you drowsy, you should not drive, drink alcohol, or operate machinery while taking this medication. Apply ice to the area for 10-15 minutes 3-4 times daily. Avoid activities that seem to make the pain worse. Xlkx-[id number]-walihxn braces may be helpful for symptoms as well, elbow tendinopathy Follow-up with primary care provider, referral for physical therapy may be required for persistent symptoms. <TOM Gan - Last Filed: 10/07/22 13:20> Prescriptions: New cyclobenzaprine 10 mg tablet 10 mg PO BEDTIME PRN (Reason: muscle spasm) Qty: 14 0RF No Action ProAir RespiClick 90 mcg/actuation aerosol powdr breath activated 1 inh inhalation QID PRN (Reason: shortness of breath or wheezing) Qty: 1 1RF prednisone 10 mg tablet 10 mg PO DAILY 7 Days Qty: 7 0RF L norgest/e.estradiol-e.estrad [Seasonique] 0.15 mg-30 mcg (84)/10 mcg (7) tablets,dose pack,3 month 1 tab PO DAILY 84 Days Qty: 84 0RF <TOM Gan - Last Filed: 10/07/22 13:20> Referrals: Monty Johnson MD [Primary Care Provider] - <TOM Gan - Last Filed: 10/07/22 13:20> Interventions: ED Discharge Assessment Last Done: 10/07/22 14:55 <TOM Gan - Last Filed: 10/07/22 13:20> Discharge Date/Time: 10/07/22 14:55 <TOM Gan - Last Filed: 10/07/22 13:20>
== END 2022-10-07 14:55 | disposition home or self-care (01) ==
PROVIDERS: Emergency Provider Emergency Medicine; PCP Internal Medicine
DX: M77.02 Medial epicondylitis, left elbow (principal); S46.912A Strain of unspecified muscle, fascia and tendon at shoulder and upper arm level, left arm, initial encounter; S39.012A Strain of muscle, fascia and tendon of lower back, initial encounter; X50.9XXA Other and unspecified overexertion or strenuous movements or postures, initial encounter; Y93.K1 Activity, walking an animal; Y92.414 Local residential or business street as the place of occurrence of the external cause; Y99.9 Unspecified external cause status; F17.200 Nicotine dependence, unspecified, uncomplicated
CPT/HCPCS: 73030; 99283

== ENCOUNTER 2022-12-31 16:03 | Outpatient (REF) | payer OTHER, SELFPAY ==
--- NOTE | ~2022-12-31 | US_ITS ---
EXAMINATION: US PELVIS CLINICAL INFORMATION: Ovarian cyst COMPARISON: Previous pelvic ultrasound most recent August 2022 and pelvic MRI August 2022 TECHNIQUE: Ultrasound of the pelvis is performed using both transabdominal and transvaginal transducers along with Doppler. Transvaginal imaging is performed due to inadequate visualization transabdominally. FINDINGS: The uterus is anteverted and measures 6.1 x 3.5 x 4.5 cm in dimension. No focal uterine lesion. Endometrial thickness is normal measuring 0.7 cm. The right ovary measures 3.2 x 1.5 x 2 cm. There is a new 2 x 1.3 x 1.7 cm simple cyst. The left ovary measures 2.6 x 1.1 x 2.1 cm. The previously identified 4 cm left ovarian cyst has resolved. There is a small amount of fluid in the pelvis. According to best practice criteria, no imaging follow-up recommended. US/US pelvic and transvaginal IMPRESSION: New 2 cm simple right ovarian cyst. The ovaries are otherwise normal.
== END 2022-12-31 16:04 | disposition home or self-care (01) ==
LOC: HO.US 16:03
PROVIDERS: PCP Internal Medicine; Visit Provider Obstetrics & Gynecology
DX: N83.299 Other ovarian cyst, unspecified side (principal)
CPT/HCPCS: 76830; 76856

== ENCOUNTER → 2023-01-14 11:55 | Outpatient (BNVA) | payer OTHER, SELFPAY | PROVIDERS: PCP Internal Medicine; Visit Provider Obstetrics & Gynecology | DX: N83.291 Other ovarian cyst, right side (principal); D06.9 Carcinoma in situ of cervix, unspecified; N80.9 Endometriosis, unspecified | CPT/HCPCS: 99212 ==

== ENCOUNTER 2023-07-22 14:38 | Emergency (ER) | payer OTHER, SELFPAY ==
[2023-07-22 15:16] VITALS: BP 109/44; PULSE 87; RESP 16; TEMP 36.9; O2SAT 97; BMI 23.9
[2023-07-22 19:50] VITALS: BP 105/65; PULSE 62; RESP 20; TEMP 37.3; O2SAT 97
[2023-07-22 23:31] VITALS: BP 120/64; PULSE 78; RESP 20; TEMP 36.7; O2SAT 98
--- NOTE | 2023-07-22 23:40 | PC.NURSE ---
pt c/o headache. this RN provided water, pillow, blanket and dimmed the lights. pt more comfortable and understands there is still an unknown wait time to be seen by provider.
[2023-07-23] MEDS: Acetaminophen 325 MG TABLET 650 MG PO (00:13)
--- NOTE | 2023-07-23 00:27 | PC.NURSE ---
pt medicated per MAR for h/a at this time
--- NOTE | 2023-07-23 00:36 | ED.SKABFB ---
HPI - Skin/Abscess/Foreign Bdy General Chief complaint: Skin/Abscess/Foreign Body Stated complaint: Rash with Blisters Time Seen by Provider: 07/23/23 00:28 Source: patient Mode of arrival: ambulatory Limitations: no limitations History of Present Illness HPI narrative: patient comes to the emergency room complaining of an itchy rash that started approximately 3 days ago. Patient denies any fever chills. Patient states that the rash started out in her back, then it started spreading up her back, then torso the neck and notes going down the legs. Patient states that she has had bedbugs in the past, but since then she has become a need freak , keeps her entire house clean. Patient denies using any new cleaning products, no new medications. Patient states that she has been trying Benadryl to help with the itchiness. No results. Related Data Previous Rx's Medication Instructions Recorded albuterol sulfate 90 mcg/actuation 1 inh inhalation QID PRN shortness 08/31/21 breath activated powder inhaler of breath or wheezing #1 ea (ProAir RespiClick) prednisone 10 mg tablet 10 mg PO DAILY 7 days #7 tabs 08/31/21 L norgest/E estradiol-E estrad 1 tab PO DAILY 84 days #84 ea 10/01/22 0.15 mg-30 mcg (84)/10 mcg(7) tabs,3mos (Seasonique) cyclobenzaprine 10 mg tablet 10 mg PO BEDTIME PRN muscle spasm 10/07/22 #14 tabs diphenhydramine HCl 2 % topical 1 appl topical QID PRN itching 07/23/23 gel (Anti-Itch (diphenhydramine)) #118 mL permethrin 5 % topical cream 1 appl topical Q14D 2 doses #60 07/23/23 grams prednisone 20 mg tablet 20 mg PO DAILY #4 tabs 07/23/23 Allergies Allergy/AdvReac Type Severity Reaction Status Date / Time No Known Allergies Allergy Verified 07/22/23 15:16 Review of Systems Review of Systems: Constitutional : No Weight loss, No Fever, No Chills, No Night Sweats, No Fatigue, No Malaise ENT/Mouth : No Hearing loss, No Ear Pain, No Nasal Congestion, No Sinus Pain, No Hoarseness, No sore throat, No Rhinorrhea, No Swallowing Difficulty Eyes: No Eye Pain, No Swelling, No Redness, No Foreign Body, No Discharge, No Vision Changes Cardiovascular : No Chest Pain, No SOB, No Dyspnea on Exertion, No Orthopnea, No Edema, No Palpitations Respiratory : No Cough, No Sputum, No Wheezing, No Smoke Exposure, No Dyspnea Gastrointestinal : No Nausea, No Vomiting, No Diarrhea, No Constipation, No abdominal Pain, No Hematochezia, No Melena Genitourinary : no irregular bleeding, No Dysuria, No Urinary Frequency, No Hematuria, No Urinary Incontinence, No Urgency, No Flank Pain, No Urinary Flow Changes, No Hesitancy Musculoskeletal : No joint pain, No Myalgias, No Joint Swelling Skin : Complaining of an itchy rash spreading from the torso /back to the extremities Neuro : No Weakness, No Numbness, No Paresthesias, No Loss of Consciousness, No Dizziness, No Headache Psych : No Anxiety/Panic, No Depression, No SI/HI/AH/VH, No Social Issues, Heme/Lymph: No Bruising, No Bleeding,No Lymphadenopathy Endocrine : No Polyuria, No Polydipsia, No Temperature Intolerance PMFSH Past Medical History Medical History Endometriosis SHARIFA III (cervical intraepithelial neoplasia grade III) with severe dysplasia Surgical History H/O foot surgery History of surgery Hx of appendectomy Family History Family History Mother No problems noted. Maternal Grandmother No problems noted. Maternal Grandfather Kidney failure High cholesterol CHF (congestive heart failure) Diabetes mellitus Social History Social History Alcohol intake: never Patient Tobacco Use Status: Current someday Tobacco user Advance Directives: No Advance Directives Information Provided: No Sexual orientation: Straight/Heterosexual Gender identity: Female Physical Exam Vital Signs: Vital Signs: Last Vital Signs Temp 98.1 F 07/22/23 23:31 Pulse 78 07/22/23 23:31 Resp 20 07/22/23 23:31 BP 120/64 07/22/23 23:31 Pulse Ox 98 07/22/23 23:31 O2 Del Method Room Air 07/22/23 23:31 BMI result Body Mass Index 23.9 Const: Other: Appearance: Alert. Oriented X3. No acute distress. Eyes: Pupils equal, round and reactive to light. ENT: Pharynx normal. Neck: Normal inspection. Neck supple. No lymph nodes noted. No crepitus CVS: Normal heart rate and rhythm. Pulses normal. Normal S1 and S2 Respiratory: No respiratory distress. Breath sounds normal. No Wheezing. No rales Abdomen: Soft and nontender. No rigidity. No distention. Skin: Skin warm and dry. patient has diffuse bedbug like rash in the chest abdomen back and neck. Patient does not have any rash in the palms and soles, no rash or tracks between the finger webs. Extremities: No lower extremity edema. No Lacerations. No Rash Neuro: Oriented X 3. No motor deficit. No sensory deficit. Moving all extremities. No slurred speech. CN 2 through 12 grossly intact Psych: calm, cooperative, normal affect Medications Administered Discontinued Medications Generic Name Dose Route Start Last Admin Trade Name Freq PRN Reason Stop Dose Admin Acetaminophen 650 mg 07/23/23 00:04 07/23/23 00:13 Acetaminophen 325 Mg Tablet PO 07/23/23 00:05 650 mg ONCE ONE Administration Medical Decision Making Medical Decision Making [facility] Narrative: - I discussed the physical exam with the patient, it is possible that she may have bedbugs. all lesions are in the same stage, chickenpox/varicella not suspected. However, we will try prednisone p.o. due to the extents of the rash Differential Diagnosis Differential Diagnoses: The differential diagnosis associated with the presentation includes ( bedbugs, scabies, allergic reaction) Discharge Plan Discharge Clinical Impression: Pruritic rash Patient Disposition: Home, Self-Care Instructions: Acute Rash (ED) Additional Instructions: Please follow-up with your primary care physician tomorrow. If you have any worsening or new symptoms, please return to the emergency room or call 911 Prescriptions: New prednisone 20 mg tablet 20 mg PO DAILY Qty: 4 0RF Anti-Itch (diphenhydramine) 2 % gel 1 appl topical QID PRN (Reason: itching) Qty: 118 0RF permethrin 5 % cream 1 appl topical Q14D Qty: 60 0RF Rx Instructions: apply second treatment 14 days after first treatment if live lice remain No Action cyclobenzaprine 10 mg tablet 10 mg PO BEDTIME PRN (Reason: muscle spasm) Qty: 14 0RF ProAir RespiClick 90 mcg/actuation aerosol powdr breath activated 1 inh inhalation QID PRN (Reason: shortness of breath or wheezing) Qty: 1 1RF prednisone 10 mg tablet 10 mg PO DAILY 7 Days Qty: 7 0RF L norgest/e.estradiol-e.estrad [Seasonique] 0.15 mg-30 mcg (84)/10 mcg (7) tablets,dose pack,3 month 1 tab PO DAILY 84 Days Qty: 84 0RF
[2023-07-23] MEDS: predniSONE 20 MG TABLET PO (00:54)
== END 2023-07-23 00:58 | disposition home or self-care (01) ==
PROVIDERS: Emergency Provider Emergency Medicine; PCP Internal Medicine
DX: L29.8 Other pruritus (principal); F17.200 Nicotine dependence, unspecified, uncomplicated
CPT/HCPCS: 99283; 99284

== ENCOUNTER 2023-07-30 14:59 | Outpatient (AMB) | payer OTHER, SELFPAY ==
--- NOTE | 2023-07-30 15:12 | MHC.OFFWIV ---
Intake Vital Signs 07/30/23 15:13 Height 5 ft 3 in Weight 68.946 kg BMI 26.9 BP 110/78 Blood Pressure Location Rt brachial Position Sitting Pulse 88 Pulse Source Pulse Oximeter Temp 98.3 F Temp Source Temporal Artery Scan Pulse Oximetry (%) 99 Oxygen Delivery Method Room Air Intake Visit Reasons: EP rash all over body Intake Note: pt is here today for rash all over body started 07/21 Patient Tobacco Use Status: Current someday Tobacco user Allergies No Known Allergies Allergy (Verified 07/30/23 15:13) Do you need a note to return to daycare/school/sports/work: No HPI HPI Comments History of Present Illness Details 1549 This is a 38-year-old female presenting with puritic rash that started at the end of june. Patient reports that the rash started her and now is everywhere except her mucous membranes, palms and soles. History of bed bugs however this does not feel the same. Denies known allergies, new products, medications, cleaning products. She is taking Benadryl and prednisone with little to no relief. Does not carry an EpiPen. Denies chest pain, shortness of breath, changes in voice, drooling, nausea, vomiting, abdominal pain. Physical exam significant for puritic maculopapular rash throughout patient's entire body no rash between web spaces, no rash on palms, soles or mucous membranes. Concerns for contact dermatitis versus bedbugs versus allergic reaction. Other differentials include bedbugs. Unlikely acute anaphylaxis. No signs of SJS, TEN Plan prednisione, epipen ( educated on proper use and when to use and to seek medical attention after use), atarax for itching (explained she should not take Atarax and Benadryl together) Educated patient on diagnosis and treatment plan, answered all question, patient verbalizes understanding. At this time patient will be discharged home, advised to return with new or worsening symptoms. Educated on worrisome signs and symptoms and when to return. At this time I feel comfortable discharge home. [facility], [facility] Medical History Endometriosis SHARIFA III (cervical intraepithelial neoplasia grade III) with severe dysplasia Surgical History History of surgery H/O foot surgery Hx of appendectomy Family History Mother No problems noted. Maternal Grandmother No problems noted. Maternal Grandfather Kidney failure High cholesterol CHF (congestive heart failure) Diabetes mellitus Social History Alcohol intake: never Patient Tobacco Use Status: Current someday Tobacco user Sexual orientation: Straight/Heterosexual Gender identity: Female Female Reproductive History Menstrual Age of Menarche: 15 Review of Systems Const Details: Constitutional : No Weight loss, No Fever, No Chills, No Fatigue, No Malaise ENT/Mouth : No sore throat, No Rhinorrhea Eyes: No Eye Pain, No Swelling, No Redness Cardiovascular : No Chest Pain, No SOB, No Dyspnea on Exertion, No Orthopnea, No Edema, No Palpitations Respiratory : No Cough, No Sputum, No Wheezing Gastrointestinal : No Nausea, No Vomiting, No Diarrhea, No Constipation, No abdominal Pain, No Hematochezia, No Melena Genitourinary : No Dysuria, No Urinary Frequency, No Hematuria, Musculoskeletal : No joint pain, No Myalgias, No Joint Swelling Skin : No Skin Lesions, + rash Neuro : No Weakness, No Numbness, No Dizziness, No Headache Psych : No Anxiety/Panic, No Depression All other systems reviewed and are negative All systems reviewed & are unremarkable except as noted in HPI and below Physical Exam Vital Signs: Last Vital Signs Temp 98.3 F 07/30/23 15:13 Pulse 88 07/30/23 15:13 BP 110/78 07/30/23 15:13 Pulse Ox 99 07/30/23 15:13 Oxygen Delivery Method Room Air 07/30/23 15:13 BMI result Body Mass Index 26.9 vss Appearance: Alert.? Oriented X3.? No acute distress.? Head: Normocephalic, atraumatic, no step-offs or deformities Eyes: Pupils equal, round and reactive to light.? CVS: Normal heart rate and rhythm.? Pulses normal.? Respiratory: No respiratory distress.? Breath sounds normal.? Abdomen: Soft and nontender.? Skin: Skin warm and dry.? Normal skin color.? Normal skin turgor.?+ puritic maculopapular rash throughout patient's entire body no rash between web spaces, no rash on palms, soles or mucous membranes. Extremities: No lower extremity edema.? No calf ttp. 5/5 strength to bilateral upper and lower extremities Neuro: Oriented X 3.? No motor deficit.? No sensory deficit. CN 2-12 intact Assessment & Plan Assessment & Plan (1) Rash: Code(s): R21 - Rash and other nonspecific skin eruption Plan Take your medications as prescribed. If you were prescribed antibiotics today, it is important that you take your medication to their entirety, do not skip any doses, do not finish them early. Follow-up with your primary care provider this week. Return to the emergency department with new or worsening symptoms. Such as fevers, chills, chest pain, shortness of breath, nausea, vomiting, dizziness, headache, vision changes, lethargy In case of emergency call 911 Medications: New prednisone 60 mg (3 x 20 mg) PO DAILY 5 days 15 tabs 0RF epinephrine (EpiPen 2-Husam) 0.3 mg (0.3 mL) IM Q4H PRN 2 ea 0RF anaphylaxis hydrocortisone 1% (Anti-Itch (hydrocortisone)) 1 appl topical TID PRN 120 mL 0RF skin irritation hydroxyzine HCl 25 mg PO BID PRN 14 tabs 0RF itching Coding Level of Care Code Est Pt Level 3 (59228) Diagnoses Rash R21
[2023-07-30 15:13] VITALS: BP 110/78; PULSE 88; TEMP 36.8; O2SAT 99; BMI 26.9
== END 2023-07-30 16:54 | disposition home or self-care (01) ==
PROVIDERS: PCP Internal Medicine; Visit Provider Physician Assistant
DX: R21 Rash and other nonspecific skin eruption (principal)
CPT/HCPCS: 99213

== ENCOUNTER 2023-08-08 15:12 | Outpatient (AMB) | payer OTHER, SELFPAY ==
[2023-08-08 15:24] VITALS: BP 118/74; BMI 27.1
--- NOTE | 2023-08-08 15:24 | A.OFFPC_ITS ---
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~ Allergies No Known Allergies Allergy (Verified 07/30/23 15:13) Medication List - Last Reconciled 08/08/23 by Monty Johnson MD albuterol sulfate 90 mcg/actuation (ProAir RespiClick) 1 inh inhalation QID PRN cetirizine (Allergy Relief (cetirizine)) 10 mg PO DAILY 30 days diphenhydramine HCl 2% (Anti-Itch (diphenhydramine)) 1 appl topical QID PRN epinephrine (EpiPen 2-Husam) 0.3 mg (0.3 mL) IM Q4H PRN hydrocortisone 1% (Anti-Itch (hydrocortisone)) 1 appl topical TID PRN hydroxyzine HCl 25 mg PO BID PRN montelukast 10 mg PO DAILY permethrin 5% 1 appl topical Q14D 2 doses prednisone 60 mg (3 x 20 mg) PO DAILY 5 days Tobacco use date assessed: 08/08/23 Dental Screening Dental Screen Date: 08/08/23 Did you have a dental visit in the last 12 months?: Yes Did you have a dental problem in the last 6 months where you did not have access to dental care?: No Was dental information given to patient?: Patient has dentist HPI 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~ HPI Details Patient is a 38-year-old female came in today to be evaluated for Patient says that it started after Thanksgiving, she was seen in walk-in clinic and then in emergency room 1 time she was told there but bite Other time she was treated for allergic reaction Currently taking hydroxyzine and Benadryl as needed She was also given prednisone that she finished 2 days ago Patient says that the rash started around her torso and then spread to arms and legs After prednisone it is better but still is very itchy and quite extensive I have placed a referral for her to be evaluated by label sewer Meanwhile I have ordered baseline labs we will be checking metabolic profile CBC, TSH, thyroid antibody test an IgE antibody level Last patient seen in this office by me was August of 2021. I have also sent cetirizine and montelukast the patient. Further management after the blood test reports Review system: There is no shortness of breath no wheezing, no cough , no headac he, no dizziness, no nausea no vomiting no abdominal pain no joint swelling PFSH Medical History Endometriosis SHARIFA III (cervical intraepithelial neoplasia grade III) with severe dysplasia Surgical History History of surgery H/O foot surgery Hx of appendectomy Family History Mother No problems noted. Maternal Grandmother No problems noted. Maternal Grandfather Kidney failure High cholesterol CHF (congestive heart failure) Diabetes mellitus Social History Housing: House Alcohol intake: never Patient Tobacco Use Status: Former Tobacco user e-Cigarette/Vaping Use: Never Used service: No Current occupational status: employed Sexual orientation: Straight/Heterosexual Gender identity: Female Cognitive needs: No Hearing needs: No Vision needs: No Female Reproductive History Menstrual Age of Menarche: 15 Questionnaire PHQ-9 Over the last 2 weeks, how often have you been bothered by any of the following problems? 1. Little interest or pleasure in doing things: not at all 2. Feeling down, depressed, or hopeless: not at all 3. Trouble falling or staying asleep, or sleeping too much: not at all 4. Feeling tired or having little energy: not at all 5. Poor appetite or overeating: not at all 6. Feeling bad about yourself - or that you are a failure or have let yourself or your family down: not at all 7. Trouble concentrating on things, such as reading the newspaper or watching television: not at all 8. Moving or speaking so slowly that other people could have noticed. Or the opposite - being so fidgety or restless that you have been moving around a lot more than usual: not at all 9. Thoughts that you would be better off or of hurting yourself in some way: not at all Total score: 0 Depression Screening Interpretation: Negative Depression Screening Done: Yes 46028 - PHQ-9 Billing: Yes Source: Developed by Drs. Roly Salinas, Oma Romeo Dick and colleagues, with an educational hoda from [employer]. Thrive Questionnaire Date Thrive assessed: 08/08/23 I am a: Patient What is your living situation today?: I have a steady place to live Within the past 12 months, did the food you bought not last and you didn't have the money to get more?: Never true Within the past 12 months, did you worry whether your food would run out before you got money to buy more?: Never true Do you have trouble paying for medicines?: No Do you have trouble getting transportation to medical appointments?: No Do you have trouble paying your heating and electricity bill?: No Do you have trouble taking care of your child, family member or friend?: No Do you have trouble with day-to-day activities such as bathing, preparing meals, shopping, managing finances, etc.?: No Are you currently unemployed and looking for a job?: No Are you interested in more education?: No Please select the resources that you would like help with: None Currently or been in a relationship where the following occur: no concerns reported ASAD-7 AMB Questionnaire ASAD-7 Date ASAD - 7 assessed: 08/08/23 Feeling nervous, anxious, or on edge: 0 = Not at all Not being able to stop or control worryin = Not at all Worrying too much about different things: 0 = Not at all Trouble relaxin = Several days Being so restless that it is hard to sit still: 0 = Not at all Becoming easily annoyed or irritable: 0 = Not at all Feeling afraid as if something awful might happen: 0 = Not at all Total ASAD-7 score (0-4 normal; 5-9 mild; 10-14 moderate; 15-21 severe): 1 Source: Developed by Drs. Roly Salinas, Romeo Collado and colleagues, with an educational hoda from [employer]. ASAD-7 Assessment Billing ASAD-7 Assessment Tool: ASAD-7 Assessment 82538 Review of Systems Const Denies chills and Denies fever(s) ENT Denies epistaxis and Denies nasal discharge Card Denies chest pain Resp Denies chest congestion, Denies cough and Denies hemoptysis GI Denies diarrhea and Denies nausea Neuro Reports no additional complaints Psych Reports no additional complaints Endo Reports no additional complaints Physical exam (Primary Care) Vital Signs: Last Vital Signs BP 118/74 08/08/23 15:24 BMI result Body Mass Index 27.1 Tobacco/Smoking Status: Tobacco use Status Tobacco use date assessed 08/08/23 12 15:27 Patient Tobacco Use Status Former Tobacco user 08/08/23 15:27 e-Cigarette/Vaping Use Never Used 08/08/23 15:27 Depression Screening Interpretation: Negative Currently or been in a relationship where the following occur: no concerns reported Const General: cooperative, comfortable and no acute distress Orientation/consciousness: patient oriented x3 HENMT Head: Yes normocephalic Eyes General: appearance normal, both eyes and all related structures Neck Other: No thyromegaly Neck: Yes supple Resp Other: Clear to auscultation Effort & Inspection: normal respiratory effort, no cough and no stridor Cardio Rhythm: regular rhythm Heart sounds: S1 normal heart sound present and S2 normal heart sound present GI Other: Soft nontender bowel sound positive Skin Other: Raised patchy rash more so around torso some on arms and legs General skin exam: turgor normal Neuro General: patient oriented x3, tone normal and moves all extremities Extrem Right lower extremity: no edema Left lower extremity: no edema Assessment and Plan Assessment & Plan (1) Hives: Code(s): L50.9 - Urticaria, unspecified (2) Pruritus: Code(s): L29.9 - Pruritus, unspecified Plan Patient is a 38-year-old female came in today to be evaluated for Patient says that it started after Thanksgiving, she was seen in walk-in clinic and then in emergency room 1 time she was told there but bite Other time she was treated for allergic reaction Currently taking hydroxyzine and Benadryl as needed She was also given prednisone that she finished 2 days ago Patient says that the rash started around her torso and then spread to arms and legs After prednisone it is better but still is very itchy and quite extensive I have placed a referral for her to be evaluated by label sewer Meanwhile I have ordered baseline labs we will be checking metabolic profile CBC, TSH, thyroid antibody test an IgE antibody level Last patient seen in this office by me was August of 2021. I have also sent cetirizine and montelukast the patient. Further management after the blood test reports Review system: There is no shortness of breath no wheezing, no cough , no headache, no dizziness, no nausea no vomiting no abdominal pain no joint swelling Orders: Orders TSH reflex Free T4 Today L50.9 - Urticaria, unspecified IgE Antibody (Anti-IgE IgG) Today L50.9 - Urticaria, unspecified Complete Blood Count Auto Diff Today L50.9 - Urticaria, unspecified Comprehensive Met. Panel Today L50.9 - Urticaria, unspecified Thyroglobulin Antibodies Today L50.9 - Urticaria, unspecified Referrals Allergy & Immunology Referral L50.9 - Urticaria, unspecified Medications: New montelukast 10 mg PO DAILY 30 tabs 0RF cetirizine (Allergy Relief (cetirizine)) 10 mg PO DAILY 30 days 30 tabs 0RF allergy symptoms Coding Level of Care Code Est Pt Level 4 (03361) Diagnoses Hives L50.9 Pruritus L29.9 Additional Codes ASAD-7 Assessment Billing - ASAD-7 Assessment Tool: ASAD-7 Assessment 69679 ([id number])
== END 2023-08-08 16:02 | disposition home or self-care (01) ==
PROVIDERS: PCP Internal Medicine; Visit Provider Internal Medicine
DX: L50.9 Urticaria, unspecified (principal); L29.9 Pruritus, unspecified
CPT/HCPCS: 99214

== ENCOUNTER 2023-10-27 11:01 | Emergency (ER) | payer SELFPAY ==
--- NOTE | ~2023-10-27 | US_ITS ---
EXAMINATION: US RETROPERITONEAL LIMITED (RENAL ONLY) CLINICAL INFORMATION: Bilateral lower abdominal pain radiating to the flanks. COMPARISON: CT abdomen and pelvis dated 06/12/2020; abdominal ultrasound dated 07/06/2019. TECHNIQUE: Real-time imaging of the kidneys. FINDINGS: RIGHT KIDNEY: 11.1 x 3.9 x 5.9 cm (SAG x AP x TRV). The kidney is normal in size, contour, and echogenicity. Renal cortical thickness is normal. No calculi or focal parenchymal lesions. No hydronephrosis. LEFT KIDNEY: 11.0 x 5.6 x 5.5 cm (SAG x AP x TRV). The kidney is normal in size, contour, and echogenicity. Renal cortical thickness is normal. No definite calculi or focal parenchymal lesions. There are scattered echogenic foci which are likely vascular and do not meet formal ultrasound criteria for calculi. No hydronephrosis. US/US renal BI IMPRESSION: Unremarkable examination.
--- NOTE | ~2023-10-27 | US_ITS ---
EXAMINATION: US PELVIS CLINICAL INFORMATION: Bilateral lower abdominal and flank pain; the last menstrual period was on 10/19/2023. COMPARISON: Pelvic ultrasound dated 12/31/2022. TECHNIQUE: Ultrasound of the pelvis is performed using both transabdominal and transvaginal transducers along with Doppler. Transvaginal imaging is performed due to inadequate visualization transabdominally. FINDINGS: Uterus: The uterus is anteverted and anteflexed. The uterus measures 6.1 x 2.7 x 4.4 cm. The double wall endometrial thickness is 4 mm. The uterus is smooth in contour and has heterogeneous myometrial echogenicity. No visible fibroid. Adnexa: Both ovaries are visualized. There is normal color flow to the adnexa. There is no ovarian torsion. There is no pelvic ascites or fluid collection. Right ovary measures 3.3 x 2.7 x 1.9 cm, volume 8.9 mL. The right ovary contains a 2.0 cm benign, simple cyst, for which no imaging follow-up is recommended. Left ovary measures 1.8 x 1.7 x 1.1 cm, volume 1.8 mL. There are small punctate calcifications, which are doubtful clinical significance and may be psammomatous calcifications or calcified age-related old infection or inflammation. US/US pelvic and transvaginal IMPRESSION: Unremarkable examination.
--- NOTE | ~2023-10-27 | US_ITS ---
EXAMINATION: ULTRASOUND PELVIC, COMPLETE CLINICAL INFORMATION: Bilateral lower abdominal pain. Bilateral flank pain. COMPARISON: Pelvic ultrasound 04/02/2023 TECHNIQUE: Transvaginal: Used to better visualize pelvic structures Transabdominal: Not adequate for visualization Spectral Doppler and color Doppler exam was utilized. LMP: 10/19/2023 FINDINGS: UTERUS: Uterus is anteverted and anteflexed. No focal lesion or mass. Endometrial thickness 0.4 cm. The uterus measures 6.1 x 2.7 x 4.4 cm. ADNEXA: Ovarian vascularity:Doppler demonstrates both arterial and venous vascular flow in the right and left ovary. No evidence of ovarian torsion. Right Ovary: Dominant follicle/cyst measuring 2 cm. Findings are overwhelmingly likely to represent a normal ovarian follicle. No followup imaging recommended. Right ovary measures 3.3 x 2.7 x 1.9 cm. Right ovarian volume 8.9 mL Left Ovary: 1.8 x 1.7 x 1.1 cm. Volume 1.8 mL. Cul-de-sac: No Fluid US/US pelvic ovarian doppler IMPRESSION: Unremarkable examination.
[2023-10-27 11:42] VITALS: BP 99/61; PULSE 90; RESP 19; TEMP 37.2; O2SAT 98; BMI 25.7
--- NOTE | 2023-10-27 11:42 | ED_ITS ---
HPI - Abdominal Pain General Chief Complaint: Abdominal Pain Stated Complaint: Abd cramping Time Seen by Provider: 10/27/23 13:24 Source: patient Mode of arrival: ambulatory Limitations: no limitations History of Present Illness HPI narrative: Patient with known history of endometriosis, now with 2.5 weeks of pelvic pain. No fever no discharge. MD elicited complaint: abdominal pain Onset (ago): week(s) Pain Consistency: intermittent Related Data Previous Rx's ?Medication ?Instructions ?Recorded diphenhydramine HCl 2 % topical 1 appl topical QID PRN itching 07/23/23 gel (Anti-Itch (diphenhydramine)) #118 mL epinephrine 0.3 mg/0.3 mL 0.3 mg (0.3 mL) IM Q4H PRN 07/30/23 injection, auto-injector (EpiPen anaphylaxis #2 ea 2-Husam) hydrocortisone 1 % lotion 1 appl topical TID PRN skin 07/30/23 (Anti-Itch (hydrocortisone)) irritation #120 mL hydroxyzine HCl 25 mg tablet 25 mg PO BID PRN itching #14 tabs 07/30/23 cetirizine 10 mg tablet (Allergy 10 mg PO DAILY allergy symptoms 30 08/08/23 Relief (cetirizine)) days #30 tabs cyclobenzaprine 10 mg tablet 10 mg PO BEDTIME #20 tabs 11/27/23 naproxen 500 mg tablet (Naprosyn) 500 mg PO BID #30 tabs 11/27/23 Allergies Allergy/AdvReac Type Severity Reaction Status Date / Time No Known Allergies Allergy Verified 06/23/24 14:30 Review of Systems Review of Systems Yes all other systems are reviewed and are negative Denies Sensory deficit (Neuro) [facility] Past Medical History Medical History Endometriosis SHARIFA III (cervical intraepithelial neoplasia grade III) with severe dysplasia Surgical History History of surgery H/O foot surgery Hx of appendectomy Family History Family History Mother No problems noted. Maternal Grandmother No problems noted. Maternal Grandfather Kidney failure High cholesterol CHF (congestive heart failure) Diabetes mellitus Social History Social History Housing: House Alcohol intake: never Patient Tobacco Use Status: Former Tobacco user e-Cigarette/Vaping Use: Never Used service: No Current occupational status: employed Sexual orientation: Straight/Heterosexual Gender identity: Female Cognitive needs: No Hearing needs: No Vision needs: No Physical Exam ED Vital Signs: Vital Signs - 24 hr 10/27/23 11:42 Temperature 99 F Pulse Rate 90 Respiratory Rate 19 Blood Pressure 99/61 Pulse Oximetry 98 Oxygen Delivery Method Room Air BMI result Body Mass Index 25.7 Const General: healthy appearing Nutritional Appearance: average body habitus Orientation/consciousness: oriented to person and patient oriented x3 Limitations: no limitations HENMT Head: Yes normal to inspection Ears: external ears normal General nose exam: Normal external nose present Mouth: Normal oral and palatal mucosa present and oropharynx normal Throat: Yes posterior oropharynx normal Eyes General: appearance normal, both eyes and all related structures Neck Neck: Yes normal visual inspection Chest Chest palpation & inspection: normal inspection of the chest Resp Auscultation: clear to auscultation bilaterally Cardio Jugular venous distension: no JVD Rate: regular rate Rhythm: regular rhythm Heart sounds: S1 normal heart sound present and S2 normal heart sound present GI Other: mild lower pelvic and abdominal pain Auscultation: normal bowel sounds General: Yes no CVA tenderness Back/Spine/Pelvis Back: no CVA tenderness Skin General skin exam: no rashes or lesions noted Neuro General: oriented to person and patient oriented x3 Cranial nerves: Yes CN's II-XII intact bilaterally Motor exam (neuro): 5/5 motor strength present throughout Sensory Exam: No Sensory deficit (Neuro) Extrem General: Yes normal to inspection Psych Appearance: grossly normal Course Course Course Narrative: RME- 11:42PM - 38yo with a past medical history of endometriosis, 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 Reports she is not on any treatment right now for endometriosis. She denies any fevers, nausea vomiting dysuria, hematuria, abnormal discharge or any other symptoms complaints or concerns. She does not have a history of kidney stones that she is aware of. Plan: Labs, UA, Doppler/ovarian ultrasound and abdominal ultrasound. Patient will be sent back to the waiting room to be evaluated in the ED. Medical Decision Making Differential Diagnosis Differential Diagnoses: The differential diagnosis associated with the presentation includes (UTI, endometriosis, ovarian cyst, were all considered) Admission/Observation Consideration of admission/observation: Escalation of care including admission/observation considered (upon arrival patient considered for admission) Lab Data 10/27/23 12:47 10/27/23 12:47 Labs: Lab Results 10/27/23 Range/Units 12:47 WBC 8.1 (4.8-10.8) X10*3/uL RBC 4.62 (4.20-5.50) X10*6/uL Hgb 13.8 (12.0-16.0) g/dl Hct 42.1 (37.0-47.0) % MCV 91.1 (80.0-98.0) fL MCH 29.9 (27.0-33.0) pg MCHC 32.8 (31.0-35.0) g/dl RDW 13.5 (11.0-16.0) % Plt Count 357 (160-400) X10*3/uL MPV 9.6 (9.4-12.3) fL Immature Gran % (Auto) 0.4 (0.0-0.4) % Neut % (Auto) 60.2 (45-73) % Lymph % (Auto) 30.4 (20-40) % Edwards % (Auto) 6.3 (2-11) % Eos % (Auto) 2.0 (0-4) % Baso % (Auto) 0.7 (0-2) % Lymph # (Auto) 2.5 (1.2-4.9) X10*3/uL Edwards # (Auto) 0.5 (0.1-1.2) X10*3/uL Eos # (Auto) 0.2 (0.0-0.4) X10*3/uL Baso # (Auto) 0.1 (0.0-0.2) X10*3/uL Abs Immat Gran (auto) 0.03 (0.00-0.03) X10*3/uL Absolute Neuts (auto) 4.9 (2.0-8.3) x10*3/uL Absolute Nucleated RBC 0.000 (0.0-0.012) X10*3/uL Nucleated RBC % (auto) 0.0 (0.0-0.2) /100WBC Sodium 138 (135-145) mmol/L Potassium 4.1 (3.3-5.1) mmol/L Chloride 103 (96-108) mmol/L Carbon Dioxide 30 H (22-29) mmol/L Anion Gap 9 L (12-20) BUN 14 (9-16) mg/dL Creatinine 0.77 (0.5-1.4) mg/dL Estim Creat Clear Calc 89.4 Estimated GFR > 60 Random Glucose 91 (60-115) mg/dL Calcium 9.5 (8.4-10.2) mg/dL Magnesium 2.2 (1.6-2.6) mg/dL Total Bilirubin 0.2 (0.0-1.0) mg/dL Direct Bilirubin < 0.2 (0.0-0.5) mg/dL AST 15 (5-31) U/L ALT 12 (0-31) U/L Alkaline Phosphatase 62 (39-117) U/L Total Protein 7.7 (6.5-8.0) g/dL Albumin 4.6 (3.5-5.0) g/dL Urine Color Yellow Urine Appearance Cloudy Urine pH 7.5 (5.0-9.0) Ur Specific [place] 1.020 (1.005-1.025) Urine Protein Negative (Neg-Trace) mg/dL Urine Glucose (UA) Negative (Negative) mg/dL Urine Ketones Negative (Negative) mg/dL Urine Blood Negative (Negative) Urine Nitrite Negative (Negative) Ur Leukocyte Esterase Negative (Negative) Urine Test NEGATIVE (NEGATIVE) Independent Interpretation I performed an independent interpretation of an: Ultrasound (no mass seen) Radiology Impression Discussion of test interpretation with radiology: I have reviewed the radiologist's reading. (small ovarian cyst on right) Tests considered The following testing was considered but not selected: CT of abd considered but US much better at imaging [employer] issues Prescription Management I considered prescription management with: Antibiotic (no UTI seen) Chronic Conditions Patient?s care impacted by: Other (endometriosis) Discharge Plan Discharge Clinical Impression: Ovarian cyst Patient Disposition: Home, Self-Care Instructions: Ovarian Cyst (ED) Prescriptions: No Action Anti-Itch (diphenhydramine) 2 % gel 1 appl topical QID PRN (Reason: itching) Qty: 118 0RF cetirizine [Allergy Relief (cetirizine)] 10 mg tablet 10 mg PO DAILY 30 Days Qty: 30 0RF epinephrine [EpiPen 2-Husam] 0.3 mg/0.3 mL auto-injector 0.3 mg IM Q4H PRN (Reason: anaphylaxis) Qty: 2 0RF hydrocortisone [Anti-Itch (HC)] 1 % lotion 1 appl topical TID PRN (Reason: skin irritation) Qty: 120 0RF hydroxyzine HCl 25 mg tablet 25 mg PO BID PRN (Reason: itching) Qty: 14 0RF naproxen [Naprosyn] 500 mg tablet 500 mg PO BID Qty: 30 0RF cyclobenzaprine 10 mg tablet 10 mg PO BEDTIME Qty: 20 0RF Referrals: Jim Montano MD [Physician] - 5 days Interventions: ED Discharge Assessment Last Done: 10/27/23 14:37 Discharge Date/Time: 10/27/23 14:38 Print Language: Azeri
[2023-10-27 12:51] LABS: MANUAL DIFF FLAG NO
[2023-10-27 12:55] LABS: Appearance Urine Cloudy; Color Urine Yellow; Glucose Urine UA Negative (Negative); Leukocyte Esterase Urine Negative (Negative); Nitrite Urine Negative (Negative); PH 7.5 (5.0-9.0); Urine Blood Negative (Negative); Urine Ketones Negative (Negative); Urine Protein Negative (Neg-Trace)
[2023-10-27 12:58] LABS: Basophils Absolute Auto 0.1 X10*3/uL (0.0-0.2); Basophils Percent Auto 0.7 % (0-2); Eosinophils Absolute Auto 0.2 X10*3/uL (0.0-0.4); Hematocrit 42.1 % (37.0-47.0); Hemoglobin 13.8 g/dl (12.0-16.0); Imm Gran Abs Auto 0.03 X10*3/uL (0.00-0.03); Imm Gran Pct Auto 0.4 % (0.0-0.4); Lymphocytes Absolute Auto 2.5 X10*3/uL (1.2-4.9); Lymphocytes Percent Auto 30.4 % (20-40); Mean Corpuscular HGB Conc 32.8 g/dl (31.0-35.0); Mean Corpuscular Hemoglobin 29.9 pg (27.0-33.0); Mean Corpuscular Volume 91.1 fL (80.0-98.0); Mean Platelet Volume 9.6 fL (9.4-12.3); Monocytes Absolute Auto 0.5 X10*3/uL (0.1-1.2); Monocytes Percent Auto 6.3 % (2-11); Neutrophils Absolute Auto 4.9 x10*3/uL (2.0-8.3); Neutrophils Percent Auto 60.2 % (45-73); Platelet Count 357 X10*3/uL (160-400); Red Blood Count 4.62 X10*6/uL (4.20-5.50); Red Cell Distribution Width 13.5 % (11.0-16.0); White Blood Count 8.1 X10*3/uL (4.8-10.8)
[2023-10-27 13:11] LABS: Alanine Aminotransferase 12 U/L (0-31); Albumin Level 4.6 g/dL (3.5-5.0); Alkaline Phosphatase 62 U/L (39-117); Anion Gap 9 (12-20); Aspartate Amino Transferase 15 U/L (5-31); Bilirubin Direct < 0.2 mg/dL (0.0-0.5); Bilirubin Total 0.2 mg/dL (0.0-1.0); Blood Urea Nitrogen 14 mg/dL (9-16); Calcium 9.5 mg/dL (8.4-10.2); Carbon Dioxide 30 mmol/L (22-29); Chloride 103 mmol/L (96-108); Creatinine Clr Calc Pharmacy 89.4; Estimated Glomerular Filt Rate > 60; Glucose Random 91 mg/dL (60-115); Magnesium 2.2 mg/dL (1.6-2.6); Potassium 4.1 mmol/L (3.3-5.1); Sodium 138 mmol/L (135-145); Total Protein 7.7 g/dL (6.5-8.0)
[2023-10-27 13:58] LABS: UPreg QC Valid YES; Urine Pregnancy NEGATIVE (NEGATIVE)
== END 2023-10-27 14:38 | disposition home or self-care (01) ==
PROVIDERS: Physician Assistant Medical; Emergency Provider Emergency Medicine; PCP Internal Medicine
DX: N83.201 Unspecified ovarian cyst, right side (principal); N80.9 Endometriosis, unspecified
CPT/HCPCS: 36415; 76775; 76830; 76856; 80053; 81003; 81025; 82248; 83735; 85025; 93975; 99282; 99284

== ENCOUNTER 2023-11-27 09:44 | Outpatient (AMB) | payer OTHER, SELFPAY ==
[2023-11-27 10:50] VITALS: BP 120/72; PULSE 83; TEMP 36.2; O2SAT 100; BMI 27.1
--- NOTE | 2023-11-27 10:50 | AM.OFFWIN_ITS ---
Intake Vital Signs 11/27/23 10:50 Height 5 ft 3 in Weight 153 lb BMI 27.1 BP 120/72 Blood Pressure Location Lt brachial Position Sitting Pulse 83 Pulse Source Pulse Oximeter Temp 97.1 F Temp Source Temporal Artery Scan Pulse Oximetry (%) 100 Oxygen Delivery Method Room Air Intake Visit Reasons: EP LT shoulder pain Intake Note: pt is here today for lft shoulder pain started 2 weeks ago Patient Tobacco Use Status: Former Tobacco user Allergies No Known Allergies Allergy (Verified 11/27/23 10:53) Do you need a note to return to daycare/school/sports/work: No HPI HPI Comments History of Present Illness Details 38 y/o female patient who presents to [facility] in clinic with c/o left shoulder pain x 2 weeks. describes pain as Sharp, radiating from shoulder to the Elbow. Reports numbness and tingling. Denies any injury or trauma. [facility] Medical History Endometriosis SHARIFA III (cervical intraepithelial neoplasia grade III) with severe dysplasia Surgical History History of surgery H/O foot surgery Hx of appendectomy Family History Mother No problems noted. Maternal Grandmother No problems noted. Maternal Grandfather Kidney failure High cholesterol CHF (congestive heart failure) Diabetes mellitus Social History Housing: House Alcohol intake: never Patient Tobacco Use Status: Former Tobacco user e-Cigarette/Vaping Use: Never Used service: No Current occupational status: employed Sexual orientation: Straight/Heterosexual Gender identity: Female Cognitive needs: No Hearing needs: No Vision needs: No Female Reproductive History Menstrual Age of Menarche: 15 Review of Systems Const All systems reviewed & are unremarkable except as noted in HPI and below Physical Exam Vital Signs: Last Vital Signs Temp 97.1 F 11/27/23 10:50 Pulse 83 11/27/23 10:50 BP 120/72 11/27/23 10:50 Pulse Ox 100 11/27/23 10:50 Oxygen Delivery Method Room Air 11/27/23 10:50 BMI result Body Mass Index 27.1 Const General: comfortable and no acute distress Orientation/consciousness: patient oriented x3 Neuro General: patient oriented x3, gait normal and moves all extremities Motor exam (neuro): 5/5 motor strength present throughout Extrem General: Yes normal to inspection and Yes full ROM Right upper extremity: shoulder/upper arm Details: normal to inspection and normal ROM; no tenderness, no swelling, no crepitus and no unusual warmth and elbow/forearm Details: normal to inspection and normal ROM; no tenderness, no swelling, no crepitus and no deformity Left upper extremity: normal to inspection, full ROM, shoulder/upper arm Details: inspection abnormal and normal ROM; no tenderness, no swelling and no crepitus and elbow/forearm Details: normal to inspection and normal ROM; no tenderness, no swelling, no unusual warmth and no crepitus Psych Attitude: cooperative Assessment & Plan Assessment & Plan (1) Left arm pain: Code(s): M79.602 - Pain in left arm Plan: - F/U with PCP if symptoms do not improve. Plan Take medicines as directed. Medications: New cyclobenzaprine 10 mg PO BEDTIME 20 tabs 0RF M79.602 - Pain in left arm Refilled naproxen (Naprosyn) 500 mg PO BID 30 tabs 0RF M79.602 - Pain in left arm Coding Level of Care Code Est Pt Level 3 (48912) Diagnoses Left arm pain M79.602 Time Spent (min) 15
== END 2023-11-27 12:09 | disposition home or self-care (01) ==
PROVIDERS: PCP Internal Medicine; Visit Provider Nurse Practitioner Family
DX: M79.602 Pain in left arm (principal)
CPT/HCPCS: 99213

== ENCOUNTER 2023-11-27 11:10 | Outpatient (REF) | payer OTHER, SELFPAY ==
[2023-11-27 12:57] LABS: MANUAL DIFF FLAG NO
[2023-11-27 13:10] LABS: Basophils Absolute Auto 0.1 X10*3/uL (0.0-0.2); Basophils Percent Auto 0.6 % (0-2); Eosinophils Absolute Auto 0.1 X10*3/uL (0.0-0.4); Eosinophils Percent Auto 0.7 % (0-4); Hematocrit 43.1 % (37.0-47.0); Hemoglobin 14.2 g/dl (12.0-16.0); Imm Gran Abs Auto 0.06 X10*3/uL (0.00-0.03); Imm Gran Pct Auto 0.6 % (0.0-0.4); Lymphocytes Percent Auto 18.9 % (20-40); Mean Corpuscular HGB Conc 32.9 g/dl (31.0-35.0); Mean Corpuscular Hemoglobin 30.5 pg (27.0-33.0); Mean Corpuscular Volume 92.5 fL (80.0-98.0); Mean Platelet Volume 10.2 fL (9.4-12.3); Monocytes Absolute Auto 0.6 X10*3/uL (0.1-1.2); Monocytes Percent Auto 5.2 % (2-11); Neutrophils Absolute Auto 7.9 x10*3/uL (2.0-8.3); Platelet Count 431 X10*3/uL (160-400); Red Blood Count 4.66 X10*6/uL (4.20-5.50); Red Cell Distribution Width 14.2 % (11.0-16.0); White Blood Count 10.7 X10*3/uL (4.8-10.8)
[2023-11-27 13:32] LABS: Alanine Aminotransferase 14 U/L (0-31); Albumin Level 4.5 g/dL (3.5-5.0); Alkaline Phosphatase 69 U/L (39-117); Anion Gap 10 (12-20); Aspartate Amino Transferase 14 U/L (5-31); Bilirubin Total 0.2 mg/dL (0.0-1.0); Blood Urea Nitrogen 17 mg/dL (9-16); Calcium 9.7 mg/dL (8.4-10.2); Carbon Dioxide 28 mmol/L (22-29); Chloride 105 mmol/L (96-108); Estimated Glomerular Filt Rate > 60; Glucose Random 92 mg/dL (60-115); Sodium 139 mmol/L (135-145); Total Protein 8.1 g/dL (6.5-8.0)
[2023-11-27 13:39] LABS: TSH reflex Free T4 0.52 uIU/mL (0.32-4.0)
[2023-11-28 06:15] LABS: Thyroglobulin Antibodies <1 IU/mL (< or = 1)
[2023-12-06 17:28] LABS: IgE Antibody (Anti-IgE IgG) 17 ng/mL (<168)
== END 2023-11-27 11:11 | disposition home or self-care (01) ==
LOC: HO.HMGCLDS 11:10
PROVIDERS: PCP Internal Medicine; Visit Provider Internal Medicine
DX: L50.9 Urticaria, unspecified (principal)
CPT/HCPCS: 36415; 80053; 83520; 84443; 85025; 86800

== ENCOUNTER 2023-12-02 10:01 | Outpatient (AMB) | payer OTHER, SELFPAY ==
[2023-12-02 10:04] VITALS: BP 122/70; PULSE 93; O2SAT 96; BMI 28.0
--- NOTE | 2023-12-02 10:04 | A.OFFPC_ITS ---
Vital Signs 12/02/23 10:04 Height 5 ft 3 in Weight 158 lb 2 oz BMI 28.0 BP 122/70 Blood Pressure Location Lt brachial Position Sitting Pulse 93 Pulse Source Pulse Oximeter Pulse Oximetry (%) 96 Oxygen Delivery Method Room Air Intake Visit Reasons: Discuss MRI for LT Shoulder pain Allergies No Known Allergies Allergy (Verified 12/02/23 10:04) Medication List - Last Reconciled 12/02/23 by Monty Johnson MD cetirizine (Allergy Relief (cetirizine)) 10 mg PO DAILY 30 days cyclobenzaprine 10 mg PO BEDTIME diphenhydramine HCl 2% (Anti-Itch (diphenhydramine)) 1 appl topical QID PRN epinephrine (EpiPen 2-Husam) 0.3 mg (0.3 mL) IM Q4H PRN hydrocortisone 1% (Anti-Itch (hydrocortisone)) 1 appl topical TID PRN hydroxyzine HCl 25 mg PO BID PRN naproxen (Naprosyn) 500 mg PO BID Tobacco use date assessed: 12/02/23 Dental Screening Dental Screen Date: 12/02/23 Did you have a dental visit in the last 12 months?: No Did you have a dental problem in the last 6 months where you did not have access to dental care?: No Was dental information given to patient?: Patient has dentist HPI Discuss MRI for LT Shoulder pain HPI Details Patient is 38-year-old female came in today to be evaluated for paresthesia in her left However patient says that she also feel heavy dense in her left arm but mostly around her elbow 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 [facility] Medical History Endometriosis SHARIFA III (cervical intraepithelial neoplasia grade III) with severe dysplasia Surgical History History of surgery H/O foot surgery Hx of appendectomy Family History Mother No problems noted. Maternal Grandmother No problems noted. Maternal Grandfather Kidney failure High cholesterol CHF (congestive heart failure) Diabetes mellitus Social History Housing: House Alcohol intake: never Patient Tobacco Use Status: Former Tobacco user e-Cigarette/Vaping Use: Never Used service: No Current occupational status: employed Sexual orientation: Straight/Heterosexual Gender identity: Female Cognitive needs: No Hearing needs: No Vision needs: No Female Reproductive History Menstrual Age of Menarche: 15 Questionnaire Thrive Questionnaire Date Thrive assessed: 08/08/23 AUDIT C Alcohol Use Questionnaire (AUDIT-C) 1. How often do you have a drink containing alcohol?: Monthly or less 2. How many drinks containing alcohol do you have on a typical day when you are drinking?: 1 or 2 3. How often do you have six or more drinks on one occasion?: Never Total Score: 1 Score Reviewed/Action Taken: Yes ASAD-7 AMB Questionnaire ASAD-7 Date ASAD - 7 assessed: 08/08/23 Source: Developed by Drs. Roly Salinas, Oma Bhakta, Romeo Wan and colleagues, with an educational hoda from [employer]. Review of Systems Const Denies chills and Denies fever(s) ENT Denies epistaxis and Denies nasal discharge Card Denies chest pain Resp Denies chest congestion, Denies cough and Denies hemoptysis GI Denies diarrhea and Denies nausea Skin/Breast Denies rash Neuro Reports no additional complaints Psych Reports no additional complaints Endo Reports no additional complaints Physical exam (Primary Care) Vital Signs: Last Vital Signs Pulse 93 12/02/23 10:04 BP 122/70 12/02/23 10:04 Pulse Ox 96 12/02/23 10:04 Oxygen Delivery Method Room Air 12/02/23 10:04 BMI result Body Mass Index 28.0 Tobacco/Smoking Status: Tobacco use Status Tobacco use date assessed 12/02/23 12/02/23 10:11 Patient Tobacco Use Status Former Tobacco user 12/02/23 10:11 e-Cigarette/Vaping Use Never Used 12/02/23 10:11 Thrive Assessment: Date of Thrive Assessment Date Thrive assessed 08/08/23 12/02/23 10:11 Const General: cooperative, comfortable and no acute distress Orientation/consciousness: patient oriented x3 HENID Head: Yes normocephalic Eyes General: appearance normal, both eyes and all related structures Neck Neck: Yes supple Resp Effort & Inspection: normal respiratory effort, no cough and no stridor Cardio Rhythm: regular rhythm Heart sounds: S1 normal heart sound present and S2 normal heart sound present Skin General skin exam: turgor normal Neuro General: patient oriented x3, tone normal and moves all extremities Extrem Other: Left upper extremity exam within normal limit except mild discomfort over medial lateral epicondyle Assessment and Plan Assessment & Plan (1) Paresthesia of left upper extremity: Code(s): R20.2 - Paresthesia of skin (2) Paresthesias in left hand: Code(s): R20.2 - Paresthesia of skin Plan Patient is 38-year-old female came in today to be evaluated for paresthesia in her left However patient says that she also feel heavy dense in her left arm but mostly around her elbow 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 Orders: Orders NE nerve conduction velocity Today R20.2 - Paresthesia of skin NE electromyogram (EMG) Today R20.2 - Paresthesia of skin Coding Level of Care Code Est Pt Level 3 (50305) Diagnoses Paresthesia of left upper extremity R20.2 Paresthesias in left hand R20.2
== END 2023-12-02 11:19 | disposition home or self-care (01) ==
PROVIDERS: PCP Internal Medicine; Visit Provider Internal Medicine
DX: R20.2 Paresthesia of skin (principal)
CPT/HCPCS: 99213

== ENCOUNTER 2023-12-16 09:28 | Outpatient (REF) | payer OTHER, SELFPAY ==
--- NOTE | 2023-12-16 09:30 | EMG_ITS ---
Left median and ulnar motor and sensory studies were performed. Left radial sensory and median and lateral antecubital sensory studies were performed and paraspinal muscles were tested with a needle. IMPRESSION: 1. Mild left median neuropathy across carpal tunnel. 2. Mild left ulnar neuropathy across cubital tunnel. MD EMILIANO Rubio/PIEDAD / [id number]
== END 2023-12-16 09:29 | disposition home or self-care (01) ==
LOC: HO.NEURO 09:28
PROVIDERS: PCP Internal Medicine; Visit Provider Internal Medicine
DX: R20.2 Paresthesia of skin (principal)
CPT/HCPCS: 95886; 95910

== ENCOUNTER 2024-01-15 06:57 | Outpatient (AMB) | payer OTHER, SELFPAY ==
--- NOTE | 2024-01-15 08:31 | A.OFFPC_ITS ---
Intake Visit Reasons: Discuss Nerve Study~ [phone] Allergies No Known Allergies Allergy (Verified 01/15/24 09:06) Medication List - Last Reconciled 01/15/24 by Monty Johnson MD cetirizine (Allergy Relief (cetirizine)) 10 mg PO DAILY 30 days cyclobenzaprine 10 mg PO BEDTIME diphenhydramine HCl 2% (Anti-Itch (diphenhydramine)) 1 appl topical QID PRN epinephrine (EpiPen 2-Husam) 0.3 mg (0.3 mL) IM Q4H PRN hydrocortisone 1% (Anti-Itch (hydrocortisone)) 1 appl topical TID PRN hydroxyzine HCl 25 mg PO BID PRN naproxen (Naprosyn) 500 mg PO BID Tobacco use date assessed: 01/15/24 Dental Screening Dental Screen Date: 01/15/24 Did you have a dental visit in the last 12 months?: Yes Did you have a dental problem in the last 6 months where you did not have access to dental care?: No Was dental information given to patient?: Patient has dentist HPI Discuss Nerve Study~ [phone] HPI Details Nav continue to have pain/numbess in her left hand insptie of wearing wrist splint she had EMG study done which shows 1. Mild left median neuropathy across ca rpal tunnel. 2. Mild left ulnar neuropathy across cub ital tunnel. Pt states symptoms were so bad that she couldnt sleep last night I am booking her apt with specialist for cortison injection after discussing with Patient [facility] Medical History Endometriosis SHARIFA III (cervical intraepithelial neoplasia grade III) with severe dysplasia Surgical History History of surgery H/O foot surgery Hx of appendectomy Family History Mother No problems noted. Maternal Grandmother No problems noted. Maternal Grandfather Kidney failure High cholesterol CHF (congestive heart failure) Diabetes mellitus Social History Housing: House Alcohol intake: never Patient Tobacco Use Status: Former Tobacco user e-Cigarette/Vaping Use: Never Used service: No Current occupational status: employed Sexual orientation: Straight/Heterosexual Gender identity: Female Cognitive needs: No Hearing needs: No Vision needs: No Female Reproductive History Menstrual Age of Menarche: 15 Questionnaire Thrive Questionnaire Date Thrive assessed: 08/08/23 AUDIT C Alcohol Use Questionnaire (AUDIT-C) 1. How often do you have a drink containing alcohol?: Never 3. How often do you have six or more drinks on one occasion?: Never Total Score: 0 Score Reviewed/Action Taken: Yes ASAD-7 AMB Questionnaire ASAD-7 Date ASAD - 7 assessed: 08/08/23 Source: Developed by Drs. Roly Salinas, Oma Bhakta, Romeo Wan and colleagues, with an educational hoda from [employer]. Review of Systems Const Denies chills and Denies fever(s) ENT Denies epistaxis and Denies nasal discharge Card Denies chest pain Resp Denies chest congestion, Denies cough and Denies hemoptysis GI Denies diarrhea and Denies nausea Skin/Breast Denies rash Neuro Reports no additional complaints Psych Reports no additional complaints Endo Reports no additional complaints Physical exam (Primary Care) Tobacco/Smoking Status: Tobacco use Status Tobacco use date assessed 01/15/24 01/15/24 09:07 Patient Tobacco Use Status Former Tobacco user 01/15/24 08:31 e-Cigarette/Vaping Use Never Used 01/15/24 08:31 Thrive Assessment: Date of Thrive Assessment Date Thrive assessed 08/08/23 01/15/24 08:31 Telehealth Telehealth Telehealth Platform: [facility] Location of provider rendering services: practice address Location of patient: address on file Patient Identification confirmed using: Name, : Yes Telehealth method: voice only Patient verbally consented to treatment: Yes Patient verbally consented to billing insurance company: Yes Patient informed of any privacy concerns related to visit: Yes Minutes spent on Phone/Video with Pt.: 13 Assessment and Plan Assessment & Plan (1) Paresthesia of left upper extremity: Code(s): R20.2 - Paresthesia of skin (2) Paresthesias in left hand: Code(s): R20.2 - Paresthesia of skin (3) Ulnar neuropathy: Code(s): G56.20 - Lesion of ulnar nerve, unspecified upper limb Plan nav continue to have pain/numbess in her left hand insptie of wearing wrist splint she had EMG study done which shows 1. Mild left median neuropathy across carpal tunnel. 2. Mild left ulnar neuropathy across cubital tunnel. Pt states symptoms were so bad that she couldnt sleep last night I am booking her apt with specialist for cortison injection after discussing with Patient Orders: Referrals Neurology Referral G56.20 - Lesion of ulnar nerve, unspecified upper limb, R 20.2 - Paresthesia of skin Coding Level of Care Code Tele Est Pt Level 3 (65634) Diagnoses Paresthesia of left upper extremity R20.2 Paresthesias in left hand R20.2 Ulnar neuropathy G56.20
== END 2024-01-15 09:51 | disposition home or self-care (01) ==
LOC: HO.HMGC 06:57
PROVIDERS: PCP Internal Medicine; Visit Provider Internal Medicine
DX: R20.2 Paresthesia of skin (principal); G56.20 Lesion of ulnar nerve, unspecified upper limb
CPT/HCPCS: 99213

== ENCOUNTER 2024-05-31 09:25 | Outpatient (AMB) | payer OTHER, SELFPAY ==
[2024-05-31 09:28] VITALS: BP 116/68; BMI 26.2
--- NOTE | 2024-05-31 09:28 | MHC.OFFVIS ---
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 No complaints. Complaining of LLQ pain started 1-2 months ago. It's intermittent in nature lasting few seconds and occurs 3x/month. it is not associated with any constipation, dysuria, no frequency incontinence, no n/v, no feverishness Last Pap/HPV was negative in 07/16. The patient had SHARIFA 3 status post cone in 02/09 followed by negative co testing in 04/12 in 05/14 in 07/16 No previous screening Mammogram [facility] Medical History Endometriosis SHARIFA III (cervical intraepithelial neoplasia grade III) with severe dysplasia Surgical History History of surgery H/O foot surgery Hx of appendectomy Family History Mother No problems noted. Maternal Grandmother No problems noted. Maternal Grandfather Kidney failure High cholesterol CHF (congestive heart failure) Diabetes mellitus Social History Housing: House Alcohol intake: never Patient Tobacco Use Status: Former Tobacco user e-Cigarette/Vaping Use: Never Used service: No Current occupational status: employed Sexual orientation: Straight/Heterosexual Gender identity: Female Cognitive needs: No Hearing needs: No Vision needs: No Female Reproductive History Menstrual Age of Menarche: 15 Date of last menstrual period: 05/24/24 Total pregnancies: 2 Full term: 1 Ab spontaneous: 1 Date of last pap smear: 07/22/22 History of abnormal pap smear: Yes (SHARIFA 3) Review of Systems Const All systems reviewed & are unremarkable except as noted in HPI and below Card Reports as per HPI Resp Reports as per HPI GI Reports as per HPI and Reports no additional complaints Reports as per HPI Physical Exam Vital Signs: Last Vital Signs BP 116/68 05/31/24 09:28 BMI result Body Mass Index 26.2 Const General: cooperative, healthy appearing and comfortable Chest Chest palpation & inspection: normal inspection of the chest and normal palpation of entire chest wall Breast/axilla inspection: normal inspection of the breasts and normal inspection of the axillae Breast/axilla palpation: normal palpation of the breasts, normal palpation of the axillae and no axillary lymphadenopathy Resp Effort & Inspection: normal respiratory effort Auscultation: clear to auscultation bilaterally Percussion: percussion normal Cardio Palpation: normal PMI Rate: regular rate Rhythm: regular rhythm Heart sounds: no murmurs and no rubs Peripheral pulses: Peripheral pulses 2+ throughout GI Inspection: Yes normal to inspection Palpation (GI): Soft to palpation, nontender, no guarding, not rigid and No hepatosplenomegaly present Percussion: Yes normal to percussion Auscultation: normal bowel sounds Rectal Exam - Female: deferred General: Yes bladder normal to palpation External Female Exam: No lesion Speculum Exam - Vagina: normal appearance of the vagina, normal palpation, normal vaginal discharge and not erythematous Speculum Exam - Cervix: normal appearance of the cervix and normal palpation Bimanual exam- vagina & uterus: normal bimanual exam, normal palpation, uterine size normal, bladder normal to palpation, consistency normal and normal palpation Bimanual Exam- Adnexa, other: normal adnexae, no masses and no tenderness Assessment & Plan Assessment & Plan (1) Well woman exam: Comment: History of SHARIFA 3 status post LEEP in 2018 Negative co testing in 04/12, 05/14, 07/16 Code(s): Z01.419 - Encounter for gynecological examination (general) (routine) without abnormal findings Category: Medical Plan: Cotesting done since 2020 co testing was missed and recommendations is to repeat 3 years. Mammogram ordered. Counseled the patient about the recommended dietary allowance of 1000 mg of Calcium & 600 IU of vitamin D. The patient was instructed to perform monthly self-breast exams and to schedule an annual exam in a year; All questions answered and the patient verbalized understanding. Instructed the patient to schedule annual exam in a year (2) Pelvic pain: Comment: With bilateral complex ovarian cyst Code(s): R10.2 - Pelvic and perineal pain Category: Medical Plan: Urine test done in the office was negative. GC and chlamydia taken and pelvic ultrasound ordered. Discussed with the patient the differential diagnosis of pelvic pain including but not limited to adnexal, uterine masses, pelvic infections (PID), GI the (Irritable bowel syndrome, diverticulitis, others), musculoskeletal, myofascial pain abdominal wall , adhesions, endometriosis, psychological and others causes. Will check results and treat accordingly. All questions answered, the patient verbalized understanding. Instructed the patient to schedule follow-up appointment in 2 weeks (3) Microscopic hematuria: Code(s): R31.29 - Other microscopic hematuria Category: Medical Plan: Urine dip showed microscopic hematuria, urine culture sent. Will repeat urine dip in 2 weeks. Discussed with the patient the possible causes of microscopic hematuria including but not limited to: interstitial cystitis, polyps, stones, masses, urethral inflammatory processes and others. If Urine Culture is negative and repeat urine dip in 2 weeks shows persistent microscopic hematuria, will proceed with CT abdomen/pelvis and urology referral. Instructions given the patient to schedule a 2 week urine dip follow-up appointment. All questions answered and the patient verbalized understanding. Orders: Orders CT NG by PCR Today Z01.419 - Encounter for gynecological examination (general) (routine) without abnormal findings US pelvic and transvaginal Today R10.2 - Pelvic and perineal pain PAP + HPV E6/E7 rfx 18/45 Today Z01.419 - Encounter for gynecological examination (general) (routine) without abnormal findings MM tomosynthesis screening BI Today Z12.31 - Encounter for screening mammogram for malignant neoplasm of breast Coding Level of Care Code Est Pt Prev Care 40-64y(73877) Diagnoses Well woman exam Z01.419 Pelvic pain R10.2 Microscopic hematuria R31.29
== END 2024-05-31 10:17 | disposition home or self-care (01) ==
PROVIDERS: PCP Internal Medicine; Visit Provider Obstetrics & Gynecology
DX: Z01.419 Encounter for gynecological examination (general) (routine) without abnormal findings (principal); R10.2 Pelvic and perineal pain; R31.29 Other microscopic hematuria; Z32.02 Encounter for pregnancy test, result negative
CPT/HCPCS: 99396

== ENCOUNTER 2024-05-31 09:25 | Outpatient (REF) | payer OTHER, SELFPAY ==
[2024-05-31 18:32] LABS: CT PCR NOT DETECTED (Not Detect.); NG PCR NOT DETECTED (Not Detect.)
[2024-06-04 06:54] LABS: HPV mRNA E6/E7 Detected (Not Detected)
== END 2024-05-31 09:26 | disposition home or self-care (01) ==
LOC: HO.LNP 09:25
PROVIDERS: PCP Internal Medicine; Visit Provider Obstetrics & Gynecology
DX: R10.2 Pelvic and perineal pain (principal); Z01.419 Encounter for gynecological examination (general) (routine) without abnormal findings
CPT/HCPCS: 81002; 81025; 87086; 87491; 87591; 87624; 88175; 99396

== ENCOUNTER 2024-06-07 15:48 | Outpatient (REF) | payer OTHER, SELFPAY ==
--- NOTE | ~2024-06-07 | US_ITS ---
EXAMINATION: US PELVIS CLINICAL INFORMATION: Pelvic and perineal pain; the last menstrual period was on 06/05/2024. COMPARISON: Pelvic ultrasound dated 10/27/2023. TECHNIQUE: Ultrasound of the pelvis is performed using both transabdominal and transvaginal transducers along with Doppler. Transvaginal imaging is performed due to inadequate visualization transabdominally. FINDINGS: Uterus: The uterus is anteverted and measures 6.1 x 3.2 x 4.4 cm. The double wall endometrial thickness is 3 mm. There are calcifications of within the fundal endometrium in the endocervical stripe. The uterus is smooth in contour and has normal myometrial echogenicity. No visible fibroid. Adnexa: Both ovaries are visualized. There is normal color flow to the adnexa. There is no ovarian torsion. There is no pelvic ascites or fluid collection. Right ovary measures 3.2 x 2.0 x 2.9 cm, volume 9.7 mL . The right ovary contains a 2.6 cm hemorrhagic cyst. Left ovary measures 2.4 x 0.9 x 2.0 cm, volume 2.3 mL. There are punctate calcifications within the left ovarian parenchyma. US/US pelvic and transvaginal IMPRESSION: 1. There are calcifications of the endometrial and endocervical stripe, which are likely a sequela of old inflammation or infection. 2. Additional punctate left ovarian calcifications are noted, which may represent benign psammomatous calcifications or a sequela of prior inflammation/infection. Electronically signed by: Ismael Vaughan MD 07/06/2024 06:43 PM LUIS ALBERTO
== END 2024-06-07 15:49 | disposition home or self-care (01) ==
LOC: HO.US 15:48
PROVIDERS: PCP Internal Medicine; Visit Provider Obstetrics & Gynecology
DX: R10.2 Pelvic and perineal pain (principal)
CPT/HCPCS: 76830; 76856

== ENCOUNTER 2024-06-21 09:01 | Outpatient (REF) | payer OTHER, SELFPAY | END 2024-06-21 09:02 | disposition home or self-care (01) | LOC: HO.LNP 09:01 | PROVIDERS: PCP Internal Medicine; Visit Provider Obstetrics & Gynecology | DX: R87.612 Low grade squamous intraepithelial lesion on cytologic smear of cervix (LGSIL) (principal); N83.299 Other ovarian cyst, unspecified side; Z32.02 Encounter for pregnancy test, result negative | CPT/HCPCS: 57454; 81025; 88305 ==

== ENCOUNTER 2024-06-21 09:01 | Outpatient (AMB) | payer OTHER, SELFPAY ==
[2024-06-21 09:03] VITALS: BP 130/76; BMI 26.2
--- NOTE | 2024-06-21 09:03 | MHC.OFFVIS ---
Vital Signs 06/21/24 09:03 Height 5 ft 3 in Weight 148 lb BMI 26.2 BP 130/76 Blood Pressure Location Lt brachial Position Sitting Intake Visit Reasons: colposcopy/ Ultrasound results Allergies No Known Allergies Allergy (Verified 06/21/24 09:07) HPI Comments Details: Presenting for ultrasound follow-up and colposcopy for abnormal Pap smear showing LSIL/HPV E6 E7 positive. Ultrasound report is still pending [facility] Medical History Endometriosis SHARIFA III (cervical intraepithelial neoplasia grade III) with severe dysplasia Surgical History History of surgery H/O foot surgery Hx of appendectomy Family History Mother No problems noted. Maternal Grandmother No problems noted. Maternal Grandfather Kidney failure High cholesterol CHF (congestive heart failure) Diabetes mellitus Social History Housing: House Alcohol intake: never Patient Tobacco Use Status: Former Tobacco user e-Cigarette/Vaping Use: Never Used service: No Current occupational status: employed Sexual orientation: Straight/Heterosexual Gender identity: Female Cognitive needs: No Hearing needs: No Vision needs: No Female Reproductive History Menstrual Age of Menarche: 15 Physical Exam Vital Signs: Last Vital Signs BP 130/76 06/21/24 09:03 BMI result Body Mass Index 26.2 Office Procedures Colposcopy Colposcopy: Pre-Procedure Counseling: Before beginning the procedure, I conducted comprehensive counseling with the patient. We thoroughly discussed the procedure itself, including its details, alternatives, and all associated risks. This included but not limited to the following complications such as bleeding, infection, and injury to the vagina, bladder, and vessels, as well as the potential need for transfusion with all its associated risks. Subsequently, the patient sign the consent. Pap smear result: LSIL/HPV E6 E7 positive. Urine test in office = Negative Procedure: During the procedure, the following steps were performed: A speculum was inserted, and acetic acid was applied. Colposcopy was conducted, allowing visualization of the transformation zone. Acetowhite lesions were identified at the 4+11+12 o'clock position. Cervical biopsies were obtained from the 4+11+12 o'clock position, followed by an endocervical curettage (ECC). Vaginoscopy of the upper vagina revealed no evidence of aceto-white lesions. Hemostasis was achieved using Monsel solution, and the patient tolerated the procedure well. Post-Procedure Instructions: The patient was advised to promptly contact the office or the after hours answering service or go to the emergency room if experiencing a temperature exceeding 100.4?F, abdominal pain, nausea/vomiting, or bleeding. Additionally, the patient was instructed to abstain from vaginal intercourse and bathtub use. The patient confirmed understanding of these instructions. Discharge Instructions: The patient was instructed to schedule a follow-up appointment in 2 weeks for further evaluation and management. Please note that this note was generated using a voice recognition program, and errors may have occurred during billet bed operator. [id number] of cervix including upper vagina with biopsy and ECC Procedure code (CPT) selection complete Results AMB Test Urine AMB Test Urine Negative Last Edit by Stephanie Lares CMA on 06/21/24 09:10 Assessment & Plan Assessment & Plan (1) LGSIL on Pap smear of cervix: Comment: HPV E6/E7 positive Code(s): R87.612 - Low grade squamous intraepithelial lesion on cytologic smear of cervix (LGSIL) Category: Medical Plan: Discussed with the patient the result of her abnormal pap, its significance, risk of progression, persistence, and regression. the false positive/negative rate of a Pap smear as a screening test in detecting cervical cancer and the indication for a diagnostic test -colposcopy, biopsy, endocervical curettage. The patient verbalized understanding and agreed with the plan, all questions answered. Colposcopy/biopsy/ECC done, see procedure note (2) Complex ovarian cyst: Code(s): N83.299 - Other ovarian cyst, unspecified side Category: Medical Plan: Ultrasound report still pending. Will schedule a 2 week follow-up appointment for ultrasound follow-up to discuss the results of the ultrasound options of treatment. Discussed with the patient the result of her abnormal pap, its significance, risk of progression, persistence, and regression. the false positive/negative rate of a Pap smear as a screening test in detecting cervical cancer and the indication for a diagnostic test -colposcopy, biopsy, endocervical curettage. The patient verbalized understanding and agreed with the plan, all questions answered. Orders: Orders AMB HCG Urine Test Today Z32.02 - Encounter for test, result negative AMB Colposcopy Today R87.612 - Low grade squamous intraepithelial lesion on cytologic smear of cervix (LGSIL) Coding Level of Care Code Procedure Only Diagnoses LGSIL on Pap smear of cervix R87.612 Complex ovarian cyst N83.299 CPT Codes Colposcopy - CPT: 15470-[id number] of cervix including upper vagina with biopsy and ECC ([id number])
== END 2024-06-21 09:33 | disposition home or self-care (01) ==
PROVIDERS: PCP Internal Medicine; Visit Provider Obstetrics & Gynecology
DX: R87.612 Low grade squamous intraepithelial lesion on cytologic smear of cervix (LGSIL) (principal); N83.299 Other ovarian cyst, unspecified side; Z32.02 Encounter for pregnancy test, result negative
CPT/HCPCS: 57454

== ENCOUNTER 2024-06-23 14:26 | Outpatient (AMB) | payer OTHER, SELFPAY ==
[2024-06-23 14:29] VITALS: BP 120/80; BMI 26.2
--- NOTE | 2024-06-23 14:29 | MHC.OFFVIS ---
Vital Signs 06/23/24 14:29 Height 5 ft 3 in Weight 148 lb BMI 26.2 BP 120/80 Blood Pressure Location Lt brachial Position Sitting Intake Visit Reasons: Test results Allergies No Known Allergies Allergy (Verified 06/23/24 14:30) HPI Comments Details: Presenting post colpo for follow-up. The patient is doing well with no complaints. The pathology showed the following: A. Endocervix, curettage: Endocervical glandular and squamous epithelium; negative for dysplasia. B. Cervix, 4:00, biopsy: Squamous mucosa; negative for dysplasia; no endocervical glandular component present. C. Cervix, 11:00, biopsy: High-grade squamous intraepithelial lesion (moderate dysplasia, SHARIFA 2), involving endocervical glands. D. Cervix, 12:00, biopsy: Low and high-grade squamous intraepithelial lesion (mild and moderate dysplasia, SHARIFA 1 and SHARIFA 2), involving endocervical glands. Comment: The dysplastic cells in the patient's previous Pap test ([facility] #[id number]) are similar to the dysplastic cells in the current biopsy In addition, pelvic ultrasound report still pending, unofficial reading showed a right 2 cm complex ovarian cyst [facility] Medical History Endometriosis SHARIFA III (cervical intraepithelial neoplasia grade III) with severe dysplasia Surgical History History of surgery H/O foot surgery Hx of appendectomy Family History Mother No problems noted. Maternal Grandmother No problems noted. Maternal Grandfather Kidney failure High cholesterol CHF (congestive heart failure) Diabetes mellitus Social History Housing: House Alcohol intake: never Patient Tobacco Use Status: Former Tobacco user e-Cigarette/Vaping Use: Never Used service: No Current occupational status: employed Sexual orientation: Straight/Heterosexual Gender identity: Female Cognitive needs: No Hearing needs: No Vision needs: No Female Reproductive History Menstrual Age of Menarche: 15 Review of Systems Const All systems reviewed & are unremarkable except as noted in HPI and below Reports as per HPI and Reports no additional complaints GI Reports no additional complaints Reports no additional complaints Physical Exam Vital Signs: Last Vital Signs BP 120/80 06/23/24 14:29 BMI result Body Mass Index 26.2 Assessment & Plan Assessment & Plan (1) SHARIFA II (cervical intraepithelial neoplasia II): Comment: History of SHARIFA 3 status post cone in 2018 Code(s): N87.1 - Moderate cervical dysplasia Category: Medical Plan: Discussed with the patient the results the pathology, recommended LEEP excision. The patient has is concerned about the recurrence of cervical dysplasia from SHARIFA 3 in 2018 and is interested in surgical definitive treatment, hysterectomy. Will refer to [facility] for minimally invasive metal miner surgery. All questions answered, the patient verbalized understanding (2) Complex ovarian cyst: Code(s): N83.299 - Other ovarian cyst, unspecified side Category: Medical Plan: Discussed with the patient the right side complex ovarian cyst by Ultrasound. The differential diagnosis discussed with the patient includes the following but not limited to: benign and malignant gynecological and non-gynecological. CA 125 ordered Options of treatment discussed with the patient include expectant management with repeat ultrasound within 6 weeks versus laparoscopic ovarian cystectomy, the patient decided to proceed by with laparoscopic ovarian cystectomy/possible oophorectomy. Informed the patient that there is no gynecologic oncologist available on staff at [facility] , therefore the patient will be referred to an OBGYN practice at [facility] of her choice where during surgery there is immediate access to a gynecologic oncologist intraoperatively in case there was any suspicion or evidence of malignancy. The patient elected to be referred to an OBGYN at [facility]. Instructed the patient to call our office back in case a referral appointment is not scheduled, missed or canceled so that we will assist on rescheduling another appointment, the patient verbalized understanding agreed with the plan. Orders: Orders CA-125 Today N83.299 - Other ovarian cyst, unspecified side Coding Level of Care Code Est Pt Level 3 (38247) Diagnoses SHARIFA II (cervical intraepithelial neoplasia II) N87.1 Complex ovarian cyst N83.299
== END 2024-06-23 14:54 | disposition home or self-care (01) ==
LOC: HO.HWS 14:26
PROVIDERS: PCP Internal Medicine; Visit Provider Obstetrics & Gynecology
DX: N87.1 Moderate cervical dysplasia (principal); N83.299 Other ovarian cyst, unspecified side
CPT/HCPCS: 99213

== ENCOUNTER → 2024-06-23 14:26 | Outpatient (BNVA) | payer OTHER, SELFPAY | PROVIDERS: PCP Internal Medicine; Visit Provider Obstetrics & Gynecology | DX: N87.1 Moderate cervical dysplasia (principal); N83.299 Other ovarian cyst, unspecified side; Z71.2 Person consulting for explanation of examination or test findings | CPT/HCPCS: 99212 ==

== ENCOUNTER 2024-06-30 15:23 | Outpatient (REF) | payer OTHER, SELFPAY ==
[2024-07-01 10:48] LABS: CA-125 19 U/mL (<35)
== END 2024-06-30 15:24 | disposition home or self-care (01) ==
LOC: HO.LAB 15:23
PROVIDERS: PCP Internal Medicine; Visit Provider Obstetrics & Gynecology
DX: N83.299 Other ovarian cyst, unspecified side (principal)
CPT/HCPCS: 36415; 86304

== ENCOUNTER 2024-07-08 11:30 | Outpatient (AMB) | payer OTHER, SELFPAY ==
[2024-07-08 11:35] VITALS: BP 126/74; BMI 26.2
--- NOTE | 2024-07-08 11:35 | MHC.OFFVIS ---
Vital Signs 07/08/24 11:35 Height 5 ft 3 in Weight 147 lb 11.355 oz BMI 26.2 BP 126/74 Intake Visit Reasons: pre op/leep Retirement Officer Required: No Information Interpreted: non-clinical & clinical Accompanied by: Self / Same As Patient Allergies No Known Allergies Allergy (Verified 07/08/24 11:35) HPI Comments Details: Presenting post colpo for follow-up. The patient is doing well with no complaints. The pathology showed the following: A. Endocervix, curettage: Endocervical glandular and squamous epithelium; negative for dysplasia. B. Cervix, 4:00, biopsy: Squamous mucosa; negative for dysplasia; no endocervical glandular component present. C. Cervix, 11:00, biopsy: High-grade squamous intraepithelial lesion (moderate dysplasia, SHARIFA 2), involving endocervical glands. D. Cervix, 12:00, biopsy: Low and high-grade squamous intraepithelial lesion (mild and moderate dysplasia, SHARIFA 1 and SHARIFA 2), involving endocervical glands Pap smear was LSIL/HPV E6 E7 positive HPV 16/18/45 negative The patient has history of SHARIFA 3 in 2018 status post LEEP cone followed by negative co testing [facility] Medical History Endometriosis SHARIFA III (cervical intraepithelial neoplasia grade III) with severe dysplasia Surgical History History of surgery H/O foot surgery Hx of appendectomy Family History Mother No problems noted. Maternal Grandmother No problems noted. Maternal Grandfather Kidney failure High cholesterol CHF (congestive heart failure) Diabetes mellitus Social History Housing: House Alcohol intake: never Patient Tobacco Use Status: Former Tobacco user e-Cigarette/Vaping Use: Never Used service: No Current occupational status: employed Sexual orientation: Straight/Heterosexual Gender identity: Female Cognitive needs: No Hearing needs: No Vision needs: No Female Reproductive History Menstrual Age of Menarche: 15 Review of Systems Const All systems reviewed & are unremarkable except as noted in HPI and below Reports as per HPI and Reports no additional complaints GI Reports no additional complaints Reports no additional complaints Physical Exam Vital Signs: Last Vital Signs BP 126/74 11/14/24 11:35 BMI result Body Mass Index 26.2 Assessment & Plan Assessment & Plan (1) SHARIFA II (cervical intraepithelial neoplasia II): Comment: History of SHARIFA 3 status post cone in 2018 Code(s): N87.1 - Moderate cervical dysplasia Category: Medical Plan: Discussed with the patient the results of the pathology showing SHARIFA 2, options of treatment were discussed with the patient including LEEP versus hysterectomy since it is recurrent. All pros and cons, risks and benefits of each were discussed with the patient, the patient decided to proceed with hysterectomy. Discussed with the patient the different types of hysterectomies including, vaginal, laparoscopic assisted vaginal, robotic assisted laparoscopic,& abdominal with BSO. All pros, cons, r/b of each approach were discussed the patient including evidence that morbidity is less and recovery is shorter with minimally invasive approaches to hysterectomy. Discussed with the patient the lack of availability of the robot DaVinci robot and/or minimally invasive rebar bender specialist at [facility]. The patient was referred to [facility]. Coding Level of Care Code Est Pt Level 3 (03863) Diagnoses SHARIFA II (cervical intraepithelial neoplasia II) N87.1
== END 2024-07-08 13:11 | disposition home or self-care (01) ==
LOC: HO.HWS 11:30
PROVIDERS: PCP Internal Medicine; Visit Provider Obstetrics & Gynecology
DX: N87.1 Moderate cervical dysplasia (principal)
CPT/HCPCS: 99213

== ENCOUNTER → 2024-07-08 11:30 | Outpatient (BNVA) | payer OTHER, SELFPAY | PROVIDERS: PCP Internal Medicine; Visit Provider Obstetrics & Gynecology | DX: Z01.818 Encounter for other preprocedural examination (principal); N87.1 Moderate cervical dysplasia | CPT/HCPCS: 99212 ==

== ENCOUNTER 2024-09-15 10:14 | Emergency (ER) | payer OTHER, SELFPAY ==
--- NOTE | 2024-09-15 | ECG_ITS ---
Test Reason : CHEST PAIN/SOB Blood Pressure : */* mmHG Vent. Rate : 89 BPM Atrial Rate : 89 BPM P-R Int : 148 ms QRS Dur : 74 ms QT Int : 354 ms P-R-T Axes : 42 68 32 degrees QTcB Int : 430 ms Normal sinus rhythm Possible Left atrial enlargement Borderline ECG When compared with ECG of 03-Jun-2017 09:42, Vent. rate has increased by 30 bpm T wave amplitude has decreased in Anterior leads Referred By: Generic ED Physician Electronically Signed By: CLAUDIA SILVA MD
--- NOTE | ~2024-09-15 | XR_ITS ---
EXAMINATION: XR CHEST CLINICAL INFORMATION: cough, fever COMPARISON: 06/03/2017. TECHNIQUE: 2 views of the chest were obtained. FINDINGS: The cardiac, hilar, and mediastinal contours are normal. The lungs are clear bilaterally. There is no pneumothorax or pleural effusion. There is no focal osseous or soft tissue abnormality. XR/XR chest 2V IMPRESSION: Normal chest. Electronically signed by: Jasvir Molina MD 09/15/2024 11:00 AM [facility]
[2024-09-15 10:18] VITALS: BP 145/64; PULSE 94; RESP 18; TEMP 36.7; O2SAT 97; BMI 25.4
--- NOTE | 2024-09-15 10:18 | ED.URI ---
HPI - URI/Sore Throat General Chief Complaint: Upper Respiratory Symptoms Stated Complaint: Chest Tightness SOB Time Seen by Provider: 09/15/24 10:20 Source: patient and old records reviewed Mode of arrival: ambulatory Limitations: no limitations History of Present Illness ED Provider: STEPHANIE HEREDIA Narrative: 39 yo female with PMH of AUB, started with a cough that is slighty more production, feels hot and has chills. Her chest tightness started today. No travel, no sick contacts, smokes just at night. She has been coughing and really overall doesn't feel well. She denies travel or sick contacts MD elicited complaint: fever and cough Onset (ago): day(s) (3) Consistency: constant Severity: moderate Description of mucous: clear Able to tolerate fluids by mouth: Yes Exacerbating factors: other (coughing) Relieving factors: nothing Associated symptoms: fever, chills, myalgias, rhinorrhea, nasal congestion, cough and shortness of breath Treatments prior to arrival: none Related Data Previous Rx's ?Medication ?Instructions ?Recorded diphenhydramine HCl 2 % topical 1 appl topical QID PRN itching 07/23/23 gel (Anti-Itch (diphenhydramine)) #118 mL epinephrine 0.3 mg/0.3 mL 0.3 mg (0.3 mL) IM Q4H PRN 07/30/23 injection, auto-injector (EpiPen anaphylaxis #2 ea 2-Husam) hydrocortisone 1 % lotion 1 appl topical TID PRN skin 07/30/23 (Anti-Itch (hydrocortisone)) irritation #120 mL hydroxyzine HCl 25 mg tablet 25 mg PO BID PRN itching #14 tabs 07/30/23 cetirizine 10 mg tablet (Allergy 10 mg PO DAILY allergy symptoms 30 08/08/23 Relief (cetirizine)) days #30 tabs cyclobenzaprine 10 mg tablet 10 mg PO BEDTIME #20 tabs 11/27/23 naproxen 500 mg tablet (Naprosyn) 500 mg PO BID #30 tabs 11/27/23 benzonatate 100 mg capsule 100 mg PO TID PRN cough #20 caps 09/15/24 ondansetron 4 mg disintegrating 4 mg PO Q8H PRN nausea and 09/15/24 tablet vomiting #20 tabs prednisone 20 mg tablet 40 mg (2 x 20 mg) PO DAILY 4 days 09/15/24 #8 tabs Allergies Allergy/AdvReac Type Severity Reaction Status Date / Time No Known Allergies Allergy Verified 09/15/24 10:19 Review of Systems Review of Systems: Constitutional : pos Fever, pos Chills ENT/Mouth : No Hoarseness, No sore throat, No Rhinorrhea Eyes: No Redness, No Discharge, No Vision Changes Cardiovascular : No Chest Pain, positive SOB, positive Dyspnea on Exertion, No Edema Respiratory : positive Cough, No Sputum, positive Wheezing, Gastrointestinal : No Nausea, No Vomiting, No Diarrhea, No abdominal Pain Genitourinary : No Dysuria, No Hematuria Musculoskeletal : No joint pain, pos Myalgias Skin : No rash Neuro : No Weakness, No Numbness, No Headache Psych : No anxiety, depression All other systems reviewed and are negative [facility] Past Medical History Attestation statement: The following information was validated with the patient. Source: old records reviewed Medical History Endometriosis SHARIFA III (cervical intraepithelial neoplasia grade III) with severe dysplasia Surgical History History of surgery H/O foot surgery Hx of appendectomy Family History Family History Mother No problems noted. Maternal Grandmother No problems noted. Maternal Grandfather Kidney failure High cholesterol CHF (congestive heart failure) Diabetes mellitus Social History Social History Housing: House Alcohol intake: never Patient Tobacco Use Status: Former Tobacco user e-Cigarette/Vaping Use: Never Used service: No Current occupational status: employed Sexual orientation: Straight/Heterosexual Gender identity: Female Cognitive needs: No Hearing needs: No Vision needs: No Physical Exam Vital Signs: Vital Signs: Last Vital Signs Temp 98.0 F 09/15/24 10:18 Pulse 88 09/15/24 10:34 Resp 18 09/15/24 10:34 BP 145/64 H 09/15/24 10:18 Pulse Ox 97 09/15/24 10:18 O2 Del Method Room Air 09/15/24 10:18 BMI result Body Mass Index 25.4 Appearance: Alert. Oriented X3. No acute distress. Eyes: Pupils equal, round and reactive to light. ENT: Pharynx normal. Neck: Normal inspection. Neck supple. CVS: Normal heart rate and rhythm. Pulses normal. Respiratory: No respiratory distress. Breath sounds some rhonchi noted Abdomen: Soft and nontender. Skin: Skin warm and dry. Normal skin color. Normal skin turgor. Extremities: No lower extremity edema. No calf ttp Neuro: Oriented X 3. No motor deficit. No sensory deficit. CN2-12 intact Medications Administered Discontinued Medications Generic Name Dose Route Start Last Admin Trade Name Garo PRN Reason Stop Dose Admin Albuterol Sulfate 2 puff 09/15/24 10:21 09/15/24 10:33 Albuterol Sulfate 90 Mcg 8 Gm Inhaler INHALE 09/15/24 10:22 2 puff ONCE ONE Administration Medical Decision Making Medical Decision Making [facility] Narrative: 39 yo female with hx of recent abnormal cervical cells here with c/o cough, body aches, chest tightness x 3 days, she is eating and drinking. She has no travel or sick contacts at this time will need labs, EKG, CXR for pneumonia, viral panel suspect COVID or flu. Will hand her inhaler and show use, with steroids. She is not toxic, chest pain related to cough suspect MSK, no risk factors for VTE. Differential Diagnosis Differential Diagnoses: The differential diagnosis associated with the presentation includes viral syndrome, bronchitis, URI Admission/Observation Consideration of admission/observation: Escalation of care including admission/observation considered work up reassuring stable for DC Lab Data [facility] Lab Attestation statement: I reviewed the patient's lab results. 09/15/24 10:29 09/15/24 10:29 Labs: Lab Results 09/15/24 Range/Units 10:29 WBC 5.4 (4.8-10.8) X10*3/uL RBC 4.52 (4.20-5.50) X10*6/uL Hgb 13.7 (12.0-16.0) g/dl Hct 40.2 (37.0-47.0) % MCV 88.9 (80.0-98.0) fL MCH 30.3 (27.0-33.0) pg MCHC 34.1 (31.0-35.0) g/dl RDW 13.5 (11.0-16.0) % Plt Count 281 D (160-400) X10*3/uL MPV 9.5 (9.4-12.3) fL Immature Gran % (Auto) 0.2 (0.0-0.4) % Neut % (Auto) 47.8 (45-73) % Lymph % (Auto) 37.1 (20-40) % [place] % (Auto) 7.9 (2-11) % Eos % (Auto) 5.9 H (0-4) % Baso % (Auto) 1.1 (0-2) % Lymph # (Auto) 2.0 (1.2-4.9) X10*3/uL [place] # (Auto) 0.4 (0.1-1.2) X10*3/uL Eos # (Auto) 0.3 (0.0-0.4) X10*3/uL Baso # (Auto) 0.1 (0.0-0.2) X10*3/uL Abs Immat Gran (auto) 0.01 (0.00-0.03) X10*3/uL Absolute Neuts (auto) 2.6 (2.0-8.3) x10*3/uL Absolute Nucleated RBC 0.000 (0.0-0.012) X10*3/uL Nucleated RBC % (auto) 0.0 (0.0-0.2) /100WBC Sodium 139 (135-145) mmol/L Potassium 3.8 (3.3-5.1) mmol/L Chloride 108 (96-108) mmol/L Carbon Dioxide 26 (22-29) mmol/L Anion Gap 9 L (12-20) BUN 11 (9-16) mg/dL Creatinine 0.67 (0.5-1.4) mg/dL Estim Creat Clear Calc 101.2 Estimated GFR > 60 Random Glucose 91 (60-115) mg/dL Calcium 8.8 D (8.4-10.2) mg/dL Magnesium 2.1 (1.6-2.6) mg/dL Total Bilirubin 0.2 (0.0-1.0) mg/dL Direct Bilirubin < 0.2 (0.0-0.5) mg/dL AST 26 (5-31) U/L ALT 15 (0-31) U/L Alkaline Phosphatase 55 (39-117) U/L Troponin I High Sens < 2.7 (<3.5-17.0) ng/L Total Protein 7.2 (6.5-8.0) g/dL Albumin 4.0 (3.5-5.0) g/dL Independent Interpretation I performed an independent interpretation of an: EKG and Plain X-Ray (normal ) Interpretation: Rate: 89 Rhythm: NSR [place]: normal Normal P waves. Normal JOSUE. Normal QRS complex. ST T wave : normal no SUSAN qTC: 430 prior studies: no acute ischemia The study has been interpreted contemporaneously by me. . Radiology Impression Discussion of test interpretation with radiology: I have reviewed the radiologist's reading. External Record Review External record reviewed: Outpatient record Prescription Management I considered prescription management with: Other Discharge Plan Discharge Clinical Impression: Bronchitis, Influenza A Patient Disposition: Home, Self-Care Instructions: Influenza (ED), Acute Bronchitis (ED) Additional Instructions: chest xray negative return for any worsening symptoms or concerns use inhaler 2 puffs every 4 hours for wheezing rest and stay hydrated Prescriptions: New prednisone 20 mg tablet 40 mg PO DAILY 4 Days Qty: 8 0RF ondansetron 4 mg tablet,disintegrating 4 mg PO Q8H PRN (Reason: nausea and vomiting) Qty: 20 0RF benzonatate 100 mg capsule 100 mg PO TID PRN (Reason: cough) Qty: 20 0RF No Action Anti-Itch (diphenhydramine) 2 % gel 1 appl topical QID PRN (Reason: itching) Qty: 118 0RF cetirizine [Allergy Relief (cetirizine)] 10 mg tablet 10 mg PO DAILY 30 Days Qty: 30 0RF epinephrine [EpiPen 2-Husam] 0.3 mg/0.3 mL auto-injector 0.3 mg IM Q4H PRN (Reason: anaphylaxis) Qty: 2 0RF hydrocortisone [Anti-Itch (HC)] 1 % lotion 1 appl topical TID PRN (Reason: skin irritation) Qty: 120 0RF hydroxyzine HCl 25 mg tablet 25 mg PO BID PRN (Reason: itching) Qty: 14 0RF naproxen [Naprosyn] 500 mg tablet 500 mg PO BID Qty: 30 0RF cyclobenzaprine 10 mg tablet 10 mg PO BEDTIME Qty: 20 0RF Stand Alone Forms: Work/School Release Print Language: Egyptian
[2024-09-15] MEDS: Albuterol Sulfate 90 MCG 8 GM INHALER 2 PUFF INHALE (10:33)
[2024-09-15 10:34] VITALS: PULSE 88; RESP 18; O2SAT 98
[2024-09-15 10:34] LABS: MANUAL DIFF FLAG NO
[2024-09-15 10:42] LABS: Basophils Absolute Auto 0.1 X10*3/uL (0.0-0.2); Basophils Percent Auto 1.1 % (0-2); Eosinophils Absolute Auto 0.3 X10*3/uL (0.0-0.4); Eosinophils Percent Auto 5.9 % (0-4); Hematocrit 40.2 % (37.0-47.0); Hemoglobin 13.7 g/dl (12.0-16.0); Imm Gran Abs Auto 0.01 X10*3/uL (0.00-0.03); Imm Gran Pct Auto 0.2 % (0.0-0.4); Lymphocytes Percent Auto 37.1 % (20-40); Mean Corpuscular HGB Conc 34.1 g/dl (31.0-35.0); Mean Corpuscular Hemoglobin 30.3 pg (27.0-33.0); Mean Corpuscular Volume 88.9 fL (80.0-98.0); Mean Platelet Volume 9.5 fL (9.4-12.3); Monocytes Absolute Auto 0.4 X10*3/uL (0.1-1.2); Monocytes Percent Auto 7.9 % (2-11); Neutrophils Absolute Auto 2.6 x10*3/uL (2.0-8.3); Neutrophils Percent Auto 47.8 % (45-73); Platelet Count 281 X10*3/uL (160-400); Red Blood Count 4.52 X10*6/uL (4.20-5.50); Red Cell Distribution Width 13.5 % (11.0-16.0); White Blood Count 5.4 X10*3/uL (4.8-10.8)
[2024-09-15 10:50] LABS: Alanine Aminotransferase 15 U/L (0-31); Alkaline Phosphatase 55 U/L (39-117); Anion Gap 9 (12-20); Aspartate Amino Transferase 26 U/L (5-31); Bilirubin Direct < 0.2 mg/dL (0.0-0.5); Bilirubin Total 0.2 mg/dL (0.0-1.0); Blood Urea Nitrogen 11 mg/dL (9-16); Calcium 8.8 mg/dL (8.4-10.2); Carbon Dioxide 26 mmol/L (22-29); Chloride 108 mmol/L (96-108); Creatinine Clr Calc Pharmacy 101.2; Estimated Glomerular Filt Rate > 60; Glucose Random 91 mg/dL (60-115); Magnesium 2.1 mg/dL (1.6-2.6); Potassium 3.8 mmol/L (3.3-5.1); Sodium 139 mmol/L (135-145); Total Protein 7.2 g/dL (6.5-8.0)
[2024-09-15 10:57] LABS: Troponin-I High Sensitivity < 2.7 ng/L (<3.5-17.0)
[2024-09-15 11:28] LABS: Influenza A PCR POSITIVE (Negative); Influenza B PCR NEGATIVE (Negative); Resp Syncy Virus RNA Qual PCR NEGATIVE (Negative); SARS COV2 PCR INHOUSE NEGATIVE (Negative)
[2024-09-15 11:43] VITALS: BP 145/64; PULSE 88; RESP 18; TEMP 36.6; O2SAT 97
== END 2024-09-15 11:44 | disposition home or self-care (01) ==
PROVIDERS: Emergency Provider Emergency Medicine; PCP Internal Medicine
DX: J10.1 Influenza due to other identified influenza virus with other respiratory manifestations (principal); J40 Bronchitis, not specified as acute or chronic; R07.89 Other chest pain; R06.02 Shortness of breath; R05.9 Cough, unspecified; F17.210 Nicotine dependence, cigarettes, uncomplicated; M79.10 Myalgia, unspecified site; R09.81 Nasal congestion; Z03.818 Encounter for observation for suspected exposure to other biological agents ruled out; Z79.899 Other long term (current) drug therapy
CPT/HCPCS: 0241U; 36415; 71046; 80048; 80076; 83735; 84484; 85025; 93005; 94640; 99284

== ENCOUNTER → 2024-09-15 10:21 | Outpatient (BNV) | payer OTHER, SELFPAY | PROVIDERS: Emergency Provider Emergency Medicine; PCP Internal Medicine; Visit Provider Radiology Diagnostic Radiology | DX: R06.02 Shortness of breath (principal) | CPT/HCPCS: 71046 ==

== ENCOUNTER → 2024-09-15 10:24 | Outpatient (BNV) | payer OTHER, SELFPAY | PROVIDERS: Emergency Provider Emergency Medicine; PCP Internal Medicine; Visit Provider Internal Medicine Cardiovascular Disease | DX: R07.9 Chest pain, unspecified (principal); R06.02 Shortness of breath | CPT/HCPCS: 93010 ==

== ENCOUNTER 2025-07-26 11:48 | Outpatient (AMB) | payer OTHER, SELFPAY ==
--- NOTE | 2025-07-26 11:53 | A.OFFPC_ITS ---
Vital Signs 07/26/25 11:56 Height 5 ft 3 in Weight 149 lb BMI 26.4 BP 90/60 Blood Pressure Location Lt brachial Position Sitting Respiration 16 Pulse 85 Pulse Source Pulse Oximeter Temp 98.4 F Temp Source Oral Pulse Oximetry (%) 97 Oxygen Delivery Method Room Air Intake Visit Reasons: Physical form Allergies No Known Allergies Allergy (Verified 07/26/25 11:59) Medication List - Last Reconciled 07/26/25 by Monty Johnson MD cetirizine (Allergy Relief (cetirizine)) 10 mg PO DAILY 30 days cyclobenzaprine 10 mg PO BEDTIME diphenhydramine HCl 2% (Anti-Itch (diphenhydramine)) 1 appl topical QID PRN epinephrine (EpiPen 2-Husam) 0.3 mg (0.3 mL) IM Q4H PRN hydrocortisone 1% (Anti-Itch (hydrocortisone)) 1 appl topical TID PRN hydroxyzine HCl 25 mg PO BID PRN naproxen (Naprosyn) 500 mg PO BID ondansetron 4 mg PO Q8H PRN Tobacco use date assessed: 07/26/25 Dental Screening Dental Screen Date: 07/26/25 Did you have a dental visit in the last 12 months?: Yes Did you have a dental problem in the last 6 months where you did not have access to dental care?: No Was dental information given to patient?: Patient has dentist HPI HPI Comments History of Present Illness Details History of Present Illness The patient is a 40-year-old individual presenting for an annual physical examination and to complete paperwork. Recurrent Cervical Cancer: - The patient has a history of cervical cancer which recurred in May of this year. - The patient underwent a laparoscopic t otal hysterectomy with right oophorectomy in February of this year at [facility], with the left ovary preserved. - Post-surgically, the patient developed a small hematoma at an incision site, which has since healed. - The patient reports that the surgical recovery went well and feels much better with less pain since the procedure. - The patient requires monitoring of the remaining left ovary every three months for conditions such as endometriosis. Left Median and Ulnar Neuropathy: - The patient was last seen in December previous year for numbness in the left hand. - An EMG nerve conduction study at that time showed mild left median neuropathy and mild left ulnar neuropathy. - A referral for a cortisone injection w as not completed as the specialist did not accept the patient's insurance. - The patient currently uses a splint at night, which is reported to be helpful for the symptoms. Surgical Menopause: - The patient experienced a significant onset of menopausal symptoms after the hysterectomy. - The patient is currently treated with an estrogen patch, using a patch and a half changed every two to three days. - Progesterone therapy is being avoided due to concerns about an increased risk of breast cancer and its potential effects on endometriosis. Medical History: - Recurrent cervical cancer - Mild left median neuropathy - Mild left ulnar neuropathy - History of depression or anxiety is de nied. Surgical History: - Total laparoscopic hysterectomy with r ight salpingo-oophorectomy in February of the current year. 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 - The patient denies a history of depres tawanna or anxiety and reports feeling much better since the hysterectomy Health Maintenance - A mammogram is recommended as the [facility] ent has not had one in several years. - Fasting labs for sugar and cholesterol will be ordered. - Immunizations are up to date; the [facility] ent received the influenza and pertussis vaccines about two weeks ago (07/06/23). [facility] [place] The patient's hysterectomy was performed by Dr. Jama at [facility]. Medications - Cetirizine [id number] as needed. - Estrogen patch (a patch and a half) ch anged every 2-3 days for menopausal symptoms. [facility] Medical History Endometriosis SHARIFA III (cervical intraepithelial neoplasia grade III) with severe dysplasia Surgical History History of surgery H/O foot surgery Hx of appendectomy Family History Mother No problems noted. Maternal Grandmother No problems noted. Maternal Grandfather Kidney failure High cholesterol CHF (congestive heart failure) Diabetes mellitus Social History Housing: House Alcohol intake: never Patient Tobacco Use Status: Former Tobacco user e-Cigarette/Vaping Use: Never Used service: No Current occupational status: employed Sexual orientation: Straight/Heterosexual Gender identity: Female Cognitive needs: No Hearing needs: No Vision needs: No Female Reproductive History Menstrual Age of Menarche: 15 Questionnaire PHQ-9 Over the last 2 weeks, how often have you been bothered by any of the following problems? 1. Little interest or pleasure in doing things: not at all 2. Feeling down, depressed, or hopeless: not at all 3. Trouble falling or staying asleep, or sleeping too much: not at all 4. Feeling tired or having little energy: not at all 5. Poor appetite or overeating: not at all 6. Feeling bad about yourself - or that you are a failure or have let yourself or your family down: not at all 7. Trouble concentrating on things, such as reading the newspaper or watching television: not at all 8. Moving or speaking so slowly that other people could have noticed. Or the opposite - being so fidgety or restless that you have been moving around a lot more than usual: not at all 9. Thoughts that you would be better off or of hurting yourself in some way: not at all Total score: 0 Depression Screening Interpretation: Negative Depression Screening Done: Yes 19291 - PHQ-9 Billing: Yes Source: Developed by Drs. Roly Salinas, Oma Bhakta, Romeo Wan and colleagues, with an educational hoda from [employer]. Thrive Questionnaire Date Thrive assessed: 07/26/25 I am a: Patient What is your living situation today?: I have a steady place to live Within the past 12 months, did the food you bought not last and you didn't have the money to get more?: Never true Within the past 12 months, did you worry whether your food would run out before you got money to buy more?: Never true Do you have trouble paying for medicines?: No Do you have trouble getting transportation to medical appointments?: No Do you have trouble paying your heating and electricity bill?: No Do you have trouble taking care of your child, family member or friend?: No Do you have trouble with day-to-day activities such as bathing, preparing meals, shopping, managing finances, etc.?: No Are you currently unemployed and looking for a job?: No Are you interested in more education?: No Please select the resources that you would like help with: None Currently or been in a relationship where the following occur: No concerns reported THRIVE Score: 0 AUDIT C Alcohol Use Questionnaire (AUDIT-C) 1. How often do you have a drink containing alcohol?: Monthly or less 2. How many drinks containing alcohol do you have on a typical day when you are drinking?: 1 or 2 3. How often do you have six or more drinks on one occasion?: Never Total Score: 1 Score Reviewed/Action Taken: Yes ASAD-7 AMB Questionnaire ASAD-7 Date ASAD - 7 assessed: 07/26/25 Feeling nervous, anxious, or on edge: 0 = Not at all Not being able to stop or control worryin = Not at all Worrying too much about different things: 0 = Not at all Trouble relaxin = Not at all Being so restless that it is hard to sit still: 0 = Not at all Becoming easily annoyed or irritable: 0 = Not at all Feeling afraid as if something awful might happen: 0 = Not at all Total ASAD-7 score (0-4 normal; 5-9 mild; 10-14 moderate; 15-21 severe): 0 Source: Developed by Drs. Roly Salinas, Oma Bhakta, Romeo Wan and colleagues, with an educational hoda from [employer]. ASAD-7 Assessment Billing ASAD-7 Assessment Tool: ASAD-7 Assessment 00082 Review of Systems Narrative Review of Systems - General: No fever no chills - Neurological: No headaches no dizziness - Ear nose throat: No sore throat no hearing difficulty no ear pain - Cardiovascular: No syncope, no chest pain, no palpitations - Gastrointestinal: No nausea vomiting or diarrhea - Endocrine: No polyuria polydipsia no heat intolerance - Genitourinary: No dysuria - Skin: No new complaints Physical exam (Primary Care) Vital Signs: Last Vital Signs Temp 98.4 F 07/26/25 11:56 Pulse 85 07/26/25 11:56 Resp 16 07/26/25 11:56 BP 90/60 07/26/25 11:56 Pulse Ox 97 07/26/25 11:56 Oxygen Delivery Method Room Air 07/26/25 11:56 BMI result Body Mass Index 26.4 Tobacco/Smoking Status: Tobacco use Status Tobacco use date assessed 07/26/25 07/26/25 11:54 Patient Tobacco Use Status Former Tobacco user 07/26/25 11:54 e-Cigarette/Vaping Use Never Used 07/26/25 11:54 PHQ-9: PHQ-9 Score PHQ-9: Total score 0 07/26/25 12:01 Depression Screening Interpretation: Negative Thrive Assessment: Date of Thrive Assessment Date Thrive assessed 07/26/25 07/26/25 11:54 Currently or been in a relationship where the following occur: No concerns reported Narrative Diagnostic results - Prior EMG/NCS from last year showed mild left median neuropathy and mild left ulnar neuropathy. Physical Exam General: Cooperative, healthy appearing, comfortable, no acute distress Orientation: Patient oriented x3 Limitations: none Head: Normal to inspection Ears: Within normal limit visually Nose: Normal external nose present Face and sinus: Normal facial exam Eyes: Appearance normal, extraocular movement intact pupils reactive Neck: Normal visual inspection and supple Respiratory: Normal respiratory effort and able to speak in complete sentences. Clear to auscultation, no stridor Cardiovascular: S1 and S2 RRR Breast exam [place] GI: Normal to inspection. Soft to palpation and nontender Skin: Turgor normal, no acute findings Neuro: Patient oriented x3, motor sensory intact, balance intact, tandem pass Extremities: Normal to inspection, no swelling, knees full ROM . Coding Level of Care Code Est Pt Level 4 (59029) Est Pt Prev Care 40-64y(84320) Diagnoses Encounter for general adult medical examination with abnormal findings Z00.01 Carpal tunnel syndrome, left G56.02 Ulnar neuropathy of left upper extremity G56.22 Laterality: left Hx of cervical cancer Z85.41 Status post complete hysterectomy Z90.710 Hormone replacement therapy Z79.890 Additional Codes ASAD-7 Assessment Billing - ASAD-7 Assessment Tool: ASAD-7 Assessment 87854 ([id number]) PHQ-9 - 11153 - PHQ-9 Billing: Yes ([id number]) Assessment & Plan Assessment & Plan (1) Encounter for general adult medical examination with abnormal findings: Code(s): Z00.01 - Encounter for general adult medical examination with abnormal findings Category: Medical (2) Carpal tunnel syndrome, left: Code(s): G56.02 - Carpal tunnel syndrome, left upper limb Category: Medical (3) Ulnar neuropathy: Code(s): G56.20 - Lesion of ulnar nerve, unspecified upper limb Category: Medical Qualifiers: Laterality: left Qualified Code(s): G56.22 - Lesion of ulnar nerve, left upper limb (4) Hx of cervical cancer: Code(s): Z85.41 - Personal history of malignant neoplasm of cervix uteri Category: Medical (5) Status post complete hysterectomy: Code(s): Z90.710 - Acquired absence of both cervix and uterus Category: Surgical (6) Hormone replacement therapy: Code(s): Z79.890 - Hormone replacement therapy Category: Medical Plan Patient Instructions - Please get a mammogram and fasting blood tests. - You should not eat or drink for 8 hours before your blood test. - Continue to wear the splint on your left hand at night for nerve pain. - Avoid activities that keep your wrist bent for long periods, like holding a phone or book, to prevent nerve pain from flaring up. - Please schedule your next physical exam before you leave. - paper work for foster care filled, Tdap and flu vaccines up to date Orders: Orders MM tomosynthesis screening BI Today Z12.31 - Encounter for screening mammogram for malignant neoplasm of breast Medications: Discontinued diphenhydramine HCl 2% (Anti-Itch (diphenhydramine)) Discontinued Reason: Patient Completed Course 1 appl topical QID PRN 118 mL 0RF itching ondansetron Discontinued Reason: No Longer Medically Relevant 4 mg PO Q8H PRN 20 tabs 0RF nausea and vomiting hydrocortisone 1% (Anti-Itch (hydrocortisone)) Discontinued Reason: Patient Completed Course 1 appl topical TID PRN 120 mL 0RF skin irritation hydroxyzine HCl Discontinued Reason: Patient Completed Course 25 mg PO BID PRN 14 tabs 0RF itching naproxen (Naprosyn) Discontinued Reason: Patient Completed Course 500 mg PO BID 30 tabs 0RF M79.602 - Pain in left arm cyclobenzaprine Discontinued Reason: Patient Completed Course 10 mg PO BEDTIME 20 tabs 0RF M79.602 - Pain in left arm
[2025-07-26 11:56] VITALS: BP 90/60; PULSE 85; RESP 16; TEMP 36.9; O2SAT 97; BMI 26.4
== END 2025-07-26 12:19 | disposition home or self-care (01) ==
LOC: HO.HMCC 11:49
PROVIDERS: PCP Internal Medicine; Visit Provider Internal Medicine
DX: Z00.01 Encounter for general adult medical examination with abnormal findings (principal); G56.02 Carpal tunnel syndrome, left upper limb; G56.22 Lesion of ulnar nerve, left upper limb; Z85.41 Personal history of malignant neoplasm of cervix uteri; Z90.710 Acquired absence of both cervix and uterus; Z79.890 Hormone replacement therapy

== ENCOUNTER → 2025-07-26 11:48 | Outpatient (BNVA) | payer OTHER, SELFPAY | PROVIDERS: PCP Internal Medicine; Visit Provider Internal Medicine | DX: Z00.01 Encounter for general adult medical examination with abnormal findings (principal); G56.02 Carpal tunnel syndrome, left upper limb; G56.22 Lesion of ulnar nerve, left upper limb; Z79.890 Hormone replacement therapy; Z90.710 Acquired absence of both cervix and uterus; Z85.41 Personal history of malignant neoplasm of cervix uteri | CPT/HCPCS: 96127; 99396 ==